=== PATIENT | female | born 1970 | race Caucasian/White ===

== ENCOUNTER 2023-06-29 10:39 | Emergency (ER) | payer MEDICAID, SELFPAY ==
--- NOTE | 2023-06-29 10:41 | XRR_ITS ---
PROCEDURE INFORMATION: Exam: XR Chest Exam date and time: 06/29/2023 11:17 AM Age: 53 years old Clinical indication: Pain; Angina pectoris; Additional info: Chest pain TECHNIQUE: Imaging protocol: Radiologic exam of the chest. Views: 1 view. COMPARISON: No relevant prior studies available. FINDINGS: Lungs: Unremarkable. No consolidation or mass. Pleural spaces: Unremarkable. No pleural effusion. No pneumothorax. Heart/Mediastinum: Unremarkable. No cardiomegaly. Bones/joints: Unremarkable. XR/XR chest 1V portable [id number] IMPRESSION: No acute findings.
--- NOTE | 2023-06-29 10:41 | ECG_ITS ---
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 Measurements Intervals [place] Rate: 61 P: 27 IA: 191 QRS: -10 QRSD: 98 T: 6 QT: 364 QTc: 368 Interpretive Statements SINUS RHYTHM LOW QRS VOLTAGE IN PRECORDIAL LEADS [QRS DEFLECTION < 1.0 mV IN CHEST LEADS] MINIMAL VOLTAGE CRITERIA FOR LVH, CONSIDER NORMAL VARIANT [MEETS CRITERIA IN ONE OF: R(aVL), S(V1), R(V5), R(V5/V6)+S(V1)] No previous ECG available for comparison Electronically Signed On 06-29-2023 23:02:14 CDT by Rnadall Alegre M.D. [id number]
[2023-06-29 10:42] VITALS: BP 158/106; PULSE 62; RESP 18; TEMP 36.3; O2SAT 98; BMI 39.6
[2023-06-29 11:00] LABS: Basophils # 0.1 10^3/uL (0.0-0.1); Basophils % 0.9 %; Eosinophils # 0.2 10^3/uL (0.0-0.8); Eosinophils % 2.9 %; Hematocrit 40.7 % (36-47); Lymphocytes # 1.9 10^3/uL (0.8-4.8); Lymphocytes % 29.8 %; Mean Corpuscular HGB Conc 31.4 g/dL (30-55); Mean Corpuscular Hemoglobin 28.6 pg (27-33); Mean Corpuscular Volume 91.1 fl (85-98); Mean Platelet Volume 10.3 fL (7.4-10.4); Monocytes # 0.5 10^3/uL (0.2-0.9); Monocytes % 8.3 %; Neutrophils # 3.73 10^3/uL (1.8-7.7); Neutrophils % 57.8 %; Nucleated Red Blood Cells % 0 %; Platelet Count 272 10^3/cmm (157-399); Red Blood Count 4.47 10^6/uL (3.85-5.65); Red Cell Distribution Width 13.9 % (12.1-15.1); White Blood Count 6.47 10^3/uL (3.29-11.43)
[2023-06-29 11:26] LABS: Troponin(5th) Baseline < 6 ng/L (0-10)
[2023-06-29 11:35] LABS: Alanine Aminotransferase 48 U/L (0-33); Albumin Level 4.1 g/dL (3.5-5.2); Alkaline Phosphatase 110 U/L (35-105); Anion Gap 13.5 (5-19); Aspartate Amino Transferase 43 U/L (0-32); Blood Urea Nitrogen 15 mg/dL (6-20); Calcium 9.3 mg/dL (8.5-10.5); Carbon Dioxide 28 mmol/L (22-29); Chloride 103 mmol/L (98-107); Creatinine Clr Calc Pharmacy 80.1468; Globulin 3.1 g/dL (1.3-4.6); Glomerular Filtration Rate 65.8 mL/min (90-130); Glucose 88 mg/dL (65-115); Lipase 22 U/L (13-60); NT Pro B Type Natriuretic Pept 148 pg/mL (0-125); Osmolality Calculated 290 mOsm/kg (285-295); Potassium 4.5 mmol/L (3.5-5.1); Sodium 140 mmol/L (136-145); Total Bilirubin 0.3 mg/dL (0.15-1.2); Total Protein 7.2 g/dL (6.6-8.7)
[2023-06-29 12:34] VITALS: BP 215/123; PULSE 63; RESP 18; O2SAT 100
--- NOTE | 2023-06-29 12:40 | W.ED.CHESTPA ---
HPI - Chest Pain General: Chief Complaint: Chest Pain Stated Complaint: Chest pains Time Seen by Provider: 06/29/23 10:58 History of Present Illness: Patient presents today with complaints of high blood pressure. Patient reports that she has has had issues with her blood pressure but has not been able to get her prescription filled due to insurance not okaying prescription refill. Patient has a history of atrial fibs, CARMINA, diverticulitis, seizure disorder, hernia, hysterectomy, allergy to fish, asthma, allergy, high cholesterol. Patient sees Dr. Laughlin. Review of Systems General: Reports: 10 or more systems reviewed and unremarkable except in HPI and below Physical Exam Const: COMMON NORMALS: alert HENMT: COMMON NORMALS: normocephalic HEAD & SCALP: normocephalic Neck/C-Spine: COMMON NORMALS: full ROM Resp: COMMON NORMALS: normal respiratory effort and clear to auscultation bilaterally AUSCULTATION: clear to auscultation bilaterally Cardio: COMMON NORMALS: regular rate and regular rhythm RATE: regular rate RHYTHM: regular rhythm GI: COMMON NORMALS: Soft to palpation and non-tender PALPATION: Yes Soft to palpation Back/Pelvis: COMMON NORMALS: thoracic and lumbar spine normal to inspection Extremity: COMMON NORMALS: normal to inspection Neuro: SENSORIUM/ORIENTATION: Yes alert Skin: COMMON NORMALS: turgor normal GENERAL SKIN EXAM: turgor normal Course Vital Signs: Vital signs: Vital Signs Temperature 97.4 F L 06/29/23 10:42 Pulse Rate 59 L 06/29/23 13:20 Respiratory Rate 18 06/29/23 13:20 Blood Pressure 190/126 06/29/23 13:20 Pulse Oximetry 99 06/29/23 13:20 Oxygen Delivery Me thod Room Air 06/29/23 13:20 MDM - Chest Pain Medical Decision Making Patient comes in today with complaints of high blood pressure. Patient appears nontoxic. Patient appears in no acute distress. Lungs are clear to auscultation. No edema is noted. Patient's vital signs normal except for some elevated blood pressure at 158/106. Differential diagnosis includes ACS, CHF, anxiety. Second troponin was unchanged at 6. CBC CMP otherwise was normal. Chest x-ray was normal. Patient's blood pressure came down to 150 systolic. Patient be continued on metoprolol 25 mg daily. Recommended follow-up with primary care for recheck in 3 days. Lab Data 06/29/23 10:55 06/29/23 10:55 Radiology Impressions Chest X-Ray 06/29/23 10:41 IMPRESSION: No acute findings. Laboratory Results WBC 6.47 10^3/uL (3.29-11.43) 06/29/23 10:55 RBC 4.47 10^6/uL (3.85-5.65) 06/29/23 10:55 Hgb 12.80 g/dL (11.27-16.99) 06/29/23 10:55 Hct 40.7 % (36-47) 06/29/23 10:55 MCV 91.1 fl (85-98) 06/29/23 10:55 MCH 28.6 pg (27-33) 06/29/23 10:55 MCHC 31.4 g/dL (30-55) 06/29/23 10:55 RDW 13.9 % (12.1-15.1) 06/29/23 10:55 Plt Count 272 10^3/cmm (157-399) 06/29/23 10:55 MPV 10.3 fL (7.4-10.4) 06/29/23 10:55 Neut % (Auto) 57.8 % 06/29/23 10:55 Lymph % (Auto) 29.8 % 06/29/23 10:55 [place] % (Auto) 8.3 % 06/29/23 10:55 Eos % (Auto) 2.9 % 06/29/23 10:55 Baso % (Auto) 0.9 % 06/29/23 10:55 Neut # (Auto) 3.73 10^3/uL (1.8-7.7) 06/29/23 10:55 Lymph # (Auto) 1.9 10^3/uL (0.8-4.8) 06/29/23 10:55 [place] # (Auto) 0.5 10^3/uL (0.2-0.9) 06/29/23 10:55 Eos # (Auto) 0.2 10^3/uL (0.0-0.8) 06/29/23 10:55 Baso # (Auto) 0.1 10^3/uL (0.0-0.1) 06/29/23 10:55 Nucleated RBC % (auto) 0 % 06/29/23 10:55 Nucleated RBCs # 0.0 /100WBC 06/29/23 10:55 Sodium 140 mmol/L (136-145) 06/29/23 10:55 Potassium 4.5 mmol/L (3.5-5.1) 06/29/23 10:55 Chloride 103 mmol/L (98-107) 06/29/23 10:55 Carbon Dioxide 28 mmol/L (22-29) 06/29/23 10:55 Anion Gap 13.5 (5-19) 06/29/23 10:55 BUN 15 mg/dL (6-20) 06/29/23 10:55 Creatinine 0.9 mg/dL (0.5-0.9) 06/29/23 10:55 GFR Calculation 65.8 mL/min (90-130) L 06/29/23 10:55 Glucose 88 mg/dL (65-115) 06/29/23 10:55 Calculated Osmolality 290 mOsm/kg (285-295) 06/29/23 10:55 Calcium 9.3 mg/dL (8.5-10.5) 06/29/23 10:55 Total Bilirubin 0.3 mg/dL (0.15-1.2) 06/29/23 10:55 AST 43 U/L (0-32) H 06/29/23 10:55 ALT 48 U/L (0-33) H 06/29/23 10:55 Alkaline Phosphatase 110 U/L (35-105) H 06/29/23 10:55 Troponin T Baseline < 6 ng/L (0-10) 06/29/23 10:55 Troponin T 120 Minute 6.00 ng/L (0-10) 06/29/23 12:50 Delta Troponin T 0.81233 ABS# (0-10) 06/29/23 12:50 NT-Pro-B Natriuret Pep 148 pg/mL (0-125) H 06/29/23 10:55 Total Protein 7.2 g/dL (6.6-8.7) 06/29/23 10:55 Albumin 4.1 g/dL (3.5-5.2) 06/29/23 10:55 Globulin 3.1 g/dL (1.3-4.6) 06/29/23 10:55 Lipase 22 U/L (13-60) 06/29/23 10:55 All radiology interpretation(s) finalized by discharge EKG Data EKG 1: I personally reviewed and interpreted this EKG as follows: EKG interpretation date: 06/29/23 EKG interpretation time: 13:02 Prior EKG tracings: not available for review Interpretation: EKG shows a mildly irregular rhythm with a rate in the 50s suggesting a atrial fibrillation with a slow ventricular response. No ST elevation or other ectopy is noted. No prior exam was available for comparison. Artifact is present Computer generated interpretation: Atrial fibrillation with slow ventricular response, low QRS voltage in precordial leads, inferior myocardial infarction of indeterminate age, abnormal EKG, unconfirmed report. Discharge Plan Discharge Patient Disposition: Home Clinical Impression: Hypertension Qualifiers: Hypertension type: unspecified Qualified Code(s): I10 - Essential (primary) hypertension Condition: Stable Prescriptions: New metoprolol succinate 50 mg tablet extended release 24 hr 25 mg PO DAILY Qty: 15 0RF No Action atorvastatin 40 mg tablet 40 mg PO QPM buspirone 5 mg tablet 5 mg PO BID alprazolam 1 mg tablet 1 mg PO BID potassium chloride 10 mEq Tablet Extended Release 10 meq PO DAILY Aspir-81 81 mg Tablet,Delayed Release (Dr/Ec) 81 mg PO DAILY ondansetron 8 mg tablet,disintegrating 8 mg PO BID warfarin 2 mg tablet 4 mg PO DAILY Rx Instructions: WITH 1MG TABLET TO EQUAL 5MG DAILY warfarin 1 mg Tablet 1 mg PO DAILY Rx Instructions: WITH TWO 2 MG TABLETS TO EQUAL 5 MG DAILY metoprolol tartrate 25 mg tablet 25 mg PO BID Discharge Orders: Discharge ED (Routine); Ordered 06/29/23 Ordered By: Davon Mercedes Discharge Diet: Usual diet Discharge Activity: Increase activity as tolerated Patient Instructions: Hypertension (ED) Activity Restrictions/Additional Instructions: Follow-up with primary care for recheck of blood pressure at next scheduled appointment. Return to ER for worsening symptoms such as increased shortness of breath, chest pain, or new concerns. Coding Level of Care Code ED [employer] Secretary for Karen Arvizu
[2023-06-29] MEDS: metoprolol succinate ER (24 HR) 50 mg Tablet 25 MG PO (12:48)
--- NOTE | 2023-06-29 12:54 | ECG_ITS ---
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 Measurements Intervals [place] Rate: 52 P: 0 VT: 0 QRS: -27 QRSD: 86 T: -25 QT: 393 QTc: 368 Interpretive Statements Regular supraventricular bradycardia, possibly sinus LOW QRS VOLTAGE IN PRECORDIAL LEADS [QRS DEFLECTION < 1.0 mV IN CHEST LEADS] MODERATE VOLTAGE CRITERIA FOR LVH, CONSIDER NORMAL VARIANT [MEETS CRITERIA IN ONE OF: R(aVL), S(V1), R(V5), R(V5/V6)+S(V1)] INFERIOR MYOCARDIAL INFARCTION , OF INDETERMINATE AGE [40+ ms Q WAVE AND/OR ST/T ABNORMALITY IN II/aVF] Compared to ECG 06/29/2023 10:44:35 Myocardial infarct finding now present Heavy baseline artifact, need to repeat Electronically Signed On 06-29-2023 23:13:34 CDT by Randall Alegre M.D. [id number]
[2023-06-29 13:12] LABS: Troponin 5 2HR Delta 0.00001 ABS# (0-10)
[2023-06-29 13:20] VITALS: BP 190/126; PULSE 59; RESP 18; O2SAT 99
== END 2023-06-29 14:46 | disposition home or self-care (01) ==
PROVIDERS: Emergency Provider Nurse Practitioner Family
DX: I10 Essential (primary) hypertension (principal); Z79.82 Long term (current) use of aspirin; Z79.01 Long term (current) use of anticoagulants
CPT/HCPCS: 36415; 71045; 80053; 83690; 83880; 84484; 85025; 93005; 99285

== ENCOUNTER 2023-08-14 15:14 | Outpatient (CLI) | payer MEDICAID, SELFPAY ==
--- NOTE | 2023-08-14 15:16 | CT_ITS ---
WS: [id number] CT ABDOMEN AND PELVIS WITH CONTRAST HISTORY: Abdominal Pain TECHNIQUE: Imaging performed of the abdomen and pelvis with IV contrast. Single phase imaging of the abdomen. Coronal and sagittal reformats are submitted. All CT scans at [facility] use at [address] [facility] one of these dose optimization techniques: automated exposure control; mA and/or kV adjustment per patient size (includes targeted exams where dose is matched to clinical indication); or iterative re construction. IV CONTRAST: Omnipaque 350; 100 mL IV. Oral contrast: Yes. DLP: 789.83 mGy.cm COMPARISON: None available. Lower thorax: Lung bases are clear. Bochdalek hernia on the LEFT. Heart is normal size. Liver/biliary system: Normal size with no intrahepatic dilatation. Gallbladder: Normal. No gallstones or wall thickening. No pericholecystic fluid. Pancreas: Normal size pancreas and pancreatic duct. No adjacent inflammation. Spleen: Normal size spleen. No mass or infarct. Adrenal glands: Normal. Right kidney: Normal size kidney. Simple cyst mid kidney 2.0 x 2.3 cm. No renal obstruction. Left kidney: Tiny cortical hypodensities. No obstruction. Aorta: Normal. Lymphadenopathy: None. Free fluid: None. GI tract: Normal stomach. Normal small bowel with no obstructive pattern. Surgical anastomosis in the mid descending colon. There is mild constipation at this location but no obstruction or mass. A few scattered diverticula. No appendicitis. Abdominal wall: Postsurgical changes along the ventral abdominal wall. There is a focal area of muscu lar thinning with bulging in the LEFT lower quadrant at the site of a prior colostomy that has been r eversed. Pelvis: Prior hysterectomy. No pelvic mass. Normal urinary bladder. Bones: 4 mm anterolisthesis of L4. Facet joint arthritis. CT/CT abdomen pelvis w con* [id number] IMPRESSION: 1. No acute abdominal or pelvic abnormalities are identified. 2. Descending colon anastomotic site appears appropriate. There is no mass or inflammation. No high-grade obstruction. 3. No renal obstruction. 4. RIGHT renal cyst, 2.0 x 2.3 cm. 5. Prior hysterectomy. 6. There are few diverticula in the descending and sigmoid colon but no eviden ce at this time for acute diverticulitis.
[2023-08-14] MEDS: iohexol 350 mg/mL 500 mL Btl (per mL) IV (17:21)
[2023-08-14] MEDS: iohexol 350 mg/mL 500 mL Btl (per mL) PO (17:22)
== END 2023-08-14 15:15 | disposition home or self-care (01) ==
LOC: RAD 15:14
PROVIDERS: PCP Electrodiagnostic Medicine; Visit Provider Electrodiagnostic Medicine
DX: N28.1 Cyst of kidney, acquired (principal); Q79.0 Congenital diaphragmatic hernia; Z90.710 Acquired absence of both cervix and uterus; M43.16 Spondylolisthesis, lumbar region; R10.9 Unspecified abdominal pain
CPT/HCPCS: 74177; Q9967

== ENCOUNTER 2023-08-25 19:41 | Emergency (ER) | payer MEDICARE, MEDICAID, SELFPAY ==
--- NOTE | 2023-08-25 19:43 | XRR_ITS ---
PROCEDURE INFORMATION: Exam: XR Right Ankle Exam date and time: 08/25/2023 8:12 PM Age: 53 years old Clinical indication: Injury or trauma; Fall; Sprain or strain; Ankle; Right TECHNIQUE: Imaging protocol: Radiologic exam of the right ankle. Views: 3 or more views. COMPARISON: No relevant prior studies available. FINDINGS: Bones/joints: A nondisplaced fracture is seen involving the distal right fibula/lateral malleolus, appearing below the level of the tibiotalar joint within the lateral malleolus on the AP and oblique views. No other fracture is seen. Ankle joint appears maintained and intact. Soft tissues: Soft tissue swelling, particularly laterally. XR/XR ankle RT min 3V* [id number] IMPRESSION: Nondisplaced fracture of the lateral malleolus of the right ankle as noted above.
[2023-08-25 19:51] VITALS: BP 129/84; PULSE 62; RESP 16; TEMP 36.6; O2SAT 97
--- NOTE | 2023-08-25 20:20 | ED_ITS ---
HPI - Extremity Problem General: Chief complaint: Extremity Injury, Lower Stated complaint: Injury to right ankle Time Seen by Provider: 08/25/23 20:12 Source: patient Mode of arrival: ambulatory Limitations: no limitations History of Present Illness: Patient is a 53-year-old female who presents to the emergency department for a right foot injury occurring today. Patient states she was walking down some steps outside when her foot slipped off the final step and she subsequently had an inversion injury to the right ankle. No previous surgeries or fractures to the right foot. States that she has had increasing swelling. She has remained ambulatory but states it is becoming more difficult due to the pain. Most pain is noted to be in the lateral aspect and it does radiate proximally. No other symptoms reported at this time. MD Complaint: joint pain Onset (ago): hour(s) Pain Consistency: constant Location: right Radiation: proximal Relieving factors: nothing Exacerbating factors: range of motion and weight bearing Associated symptoms: Deny chest pain, fever(s) or rash Review of Systems General: Reports: 10 or more systems reviewed and unremarkable except in HPI and below Const: Denies: fever(s), chills or fatigue Eyes: Denies: change in vision ENMT: Denies: throat pain, ear or mastoid pain or nasal discharge Card: Denies: chest pain, palpitations, swelling of feet/ankles or lightheadedness Resp: Denies: dyspnea, productive cough or wheezing GI: Denies: abdominal pain, nausea, vomiting, diarrhea or constipation : Denies: flank pain, difficulty voiding, dysuria or urinary frequency Musc: Reports: joint pain; Denies: neck pain or back pain Skin/Breast: Denies: rash Neuro: Denies: headache(s), numbness in extremities or weakness in extremities Physical Exam Const: COMMON NORMALS: no acute distress, patient oriented x3 and no limitations GENERAL APPEARANCE: cooperative, comfortable and well developed ORIENTATION/CONSCIOUSNESS: Yes awake, Yes oriented to person, Yes oriented to place and Yes oriented to time HENMT: COMMON NORMALS: normocephalic, atraumatic and hearing grossly normal bilaterally HEAD & SCALP: normocephalic and atraumatic Eye: COMMON NORMALS: Equal, round and reactive pupils present, EOMs intact bilaterally and conjunctivae normal CONJUNCTIVA: Yes conjunctivae normal PUPIL: Yes Equal, round and reactive pupils present Neck/C-Spine: COMMON NORMALS: full ROM, supple and no JVD Resp: COMMON NORMALS: normal respiratory effort, No retractions, No use of accessory muscles and clear to auscultation bilaterally AUSCULTATION: clear to auscultation bilaterally Cardio: COMMON NORMALS: no JVD, regular rate, regular rhythm, No clicks present (Cardio), No murmurs present (Cardio) and No rub (Cardio) RATE: regular rate RHYTHM: regular rhythm Extremity: NARRATIVE EXTREMITY EXAM: Mild to moderate swelling noted to lateral aspect of patient's right foot. It is tender to palpation about the right lateral malleolus which extends proximally up the leg. She is ambulatory into the emergency department though noted to be with antalgic gait. Distal neurovascular exam is intact. Limited range of motion from the pain, specifically with ankle inversion. Abrasion noted to right knee. Neuro: COMMON NORMALS: patient oriented x3, moves all extremities, no focal motor deficits and no sensory deficits noted SENSORIUM/ORIENTATION: Yes oriented to person, Yes oriented to place and Yes oriented to time Psych: COMMON NORMALS: mental status grossly normal and Normal thought process present THOUGHT PROCESS: Normal thought process present Skin: COMMON NORMALS: no rashes or lesions noted GENERAL SKIN EXAM: no rashes or lesions noted Course Vital Signs: Vital signs: Vital Signs Temperature 97.9 F 08/25/23 19:51 Pulse Rate 62 08/25/23 19:51 Respiratory Rate 16 08/25/23 19:51 Blood Pressure 129/84 08/25/23 19:51 Pulse Oximetry 97 08/25/23 19:51 Oxygen Delivery Me thod Room Air 08/25/23 19:51 MDM - Extremity (Nontraumatic) Medical Decision Making Patient presented for right ankle injury suffered today, inversion injury. She had antalgic gait into the emergency department and exam did reveal some swelling to the lateral aspect with proximal pain. X-ray did demonstrate a nondisplaced fracture of the lateral malleolus, she will be placed in a splint and referred to orthopedics. She has not taken anything for pain at this time and she is instructed to alternate Tylenol and ibuprofen. Crutches will be provided. Strict return precautions given. Lab Data Radiology Impressions Ankle X-Ray 08/25/23 19:43 IMPRESSION: Nondisplaced fracture of the lateral malleolus of the right ankle as noted above. All radiology interpretation(s) finalized by discharge Discharge Plan Discharge Patient Disposition: Home Clinical Impression: Fracture of lateral malleolus of right ankle Qualifiers: Encounter type: initial encounter Fracture type: closed Fracture alignment: nondisplaced Qualified Code(s): S82.64XA - Nondisplaced fracture of lateral malleolus of right fibula, initial encounter for closed fracture Condition: Stable Prescriptions: No Action atorvastatin 40 mg tablet 40 mg PO QPM buspirone 5 mg tablet 5 mg PO BID alprazolam 1 mg tablet 1 mg PO BID potassium chloride 10 mEq Tablet Extended Release 10 meq PO DAILY Aspir-81 81 mg Tablet,Delayed Release (Dr/Ec) 81 mg PO DAILY ondansetron 8 mg tablet,disintegrating 8 mg PO BID warfarin 2 mg tablet 4 mg PO DAILY Rx Instructions: WITH 1MG TABLET TO EQUAL 5MG DAILY warfarin 1 mg Tablet 1 mg PO DAILY Rx Instructions: WITH TWO 2 MG TABLETS TO EQUAL 5 MG DAILY metoprolol tartrate 25 mg tablet 25 mg PO BID metoprolol succinate 50 mg tablet extended release 24 hr 25 mg PO DAILY Qty: 15 0RF Discharge Orders: Discharge ED (Routine); Ordered 08/25/23 Ordered By: Gregg Griffin Referrals: Ricardo Laughlin DO [Primary Care Provider] - Discharge Diet: Usual diet Discharge Activity: Limit activity as instructed Patient Instructions: Ankle Fracture (ED) Activity Restrictions/Additional Instructions: Follow-up with orthopedics as discussed. Splint on until then. Use crutches as provided. Tylenol and ibuprofen at home for pain relief. Return with any new or concerning symptoms. Coding Level of Care Code ED Biostatistics Manager for Karen Arvizu
[2023-08-25] MEDS: ibuprofen 800 mg tablet PO ×2 (21:18→21:31)
--- NOTE | 2023-08-28 14:49 | DCPLANNER ---
messaged ortho for er f/u
== END 2023-08-25 21:31 | disposition home or self-care (01) ==
PROVIDERS: Emergency Provider Physician Assistant; PCP Electrodiagnostic Medicine
DX: S82.64XA Nondisplaced fracture of lateral malleolus of right fibula, initial encounter for closed fracture (principal); Z79.82 Long term (current) use of aspirin; Z79.01 Long term (current) use of anticoagulants; W01.0XXA Fall on same level from slipping, tripping and stumbling without subsequent striking against object, initial encounter
CPT/HCPCS: 29515; 73610; 99283; E0114

== ENCOUNTER 2023-09-04 11:33 | Outpatient (CLI) | payer MEDICARE, MEDICAID, SELFPAY | END 2023-09-04 11:34 | disposition home or self-care (01) | LOC: SPT 11:34 | PROVIDERS: PCP Electrodiagnostic Medicine; Visit Provider Physician Assistant | DX: Z46.89 Encounter for fitting and adjustment of other specified devices (principal); S82.64XD Nondisplaced fracture of lateral malleolus of right fibula, subsequent encounter for closed fracture with routine healing; X58.XXXD Exposure to other specified factors, subsequent encounter | CPT/HCPCS: 97760; L4361 ==

== ENCOUNTER 2023-09-04 14:00 | Outpatient (CLI) | payer MEDICARE, MEDICAID, SELFPAY | END 2023-09-04 14:01 | disposition home or self-care (01) | LOC: SLEEP 09-05 11:42 | PROVIDERS: PCP Electrodiagnostic Medicine; Visit Provider Electrodiagnostic Medicine | DX: R53.83 Other fatigue (principal); S82.831A Other fracture of upper and lower end of right fibula, initial encounter for closed fracture; R06.83 Snoring; W10.9XXA Fall (on) (from) unspecified stairs and steps, initial encounter | CPT/HCPCS: 27786; 73590; 73610; 99203; G0399 ==

== ENCOUNTER → 2023-10-02 11:03 | Outpatient (BNVA) | payer OTHER, MEDICAID, SELFPAY | PROVIDERS: PCP Electrodiagnostic Medicine; Visit Provider Physician Assistant | DX: S82.831A Other fracture of upper and lower end of right fibula, initial encounter for closed fracture (principal); X58.XXXA Exposure to other specified factors, initial encounter | CPT/HCPCS: 73610; 99213 ==

== ENCOUNTER → 2023-10-17 10:54 | Outpatient (BNVA) | payer OTHER, MEDICAID, SELFPAY | PROVIDERS: PCP Electrodiagnostic Medicine; Visit Provider Student in an Organized Health Care Education/Training Program | DX: S82.831A Other fracture of upper and lower end of right fibula, initial encounter for closed fracture (principal); M25.371 Other instability, right ankle; X58.XXXA Exposure to other specified factors, initial encounter; Z46.89 Encounter for fitting and adjustment of other specified devices; S82.831D Other fracture of upper and lower end of right fibula, subsequent encounter for closed fracture with routine healing; X58.XXXD Exposure to other specified factors, subsequent encounter | CPT/HCPCS: 73610; 99213 ==

== ENCOUNTER 2023-10-17 14:08 | Outpatient (CLI) | payer OTHER, MEDICAID, SELFPAY | END 2023-10-17 14:09 | disposition home or self-care (01) | LOC: SPT 14:09 | PROVIDERS: PCP Electrodiagnostic Medicine; Visit Provider Student in an Organized Health Care Education/Training Program | DX: Z46.89 Encounter for fitting and adjustment of other specified devices (principal); S82.831D Other fracture of upper and lower end of right fibula, subsequent encounter for closed fracture with routine healing; X58.XXXD Exposure to other specified factors, subsequent encounter | CPT/HCPCS: 97760; L1902 ==

== ENCOUNTER 2023-11-06 20:00 | Outpatient (CLI) | payer OTHER, MEDICAID, SELFPAY | END 2023-11-06 20:01 | disposition home or self-care (01) | PROVIDERS: PCP Electrodiagnostic Medicine; Visit Provider Electrodiagnostic Medicine | DX: G47.33 Obstructive sleep apnea (adult) (pediatric) (principal) | CPT/HCPCS: 95810 ==

== ENCOUNTER 2023-11-15 12:43 | Outpatient (CLI) | payer OTHER, MEDICAID, SELFPAY ==
--- NOTE | 2023-11-15 13:00 | MRR_ITS ---
PROCEDURE INFORMATION: Exam: MR Right Lower Extremity Joint Without Contrast; Ankle Exam date and time: 11/15/2023 2:06 PM Age: 53 years old Clinical indication: Pain; Ankle; Right; Patient HX: FX 2 mos ago, still sore; Additional info: Right ankle instability and distal fibula fracture TECHNIQUE: Imaging protocol: Magnetic resonance imaging of the right lower extremity without contrast. Exam focused on the ankle. COMPARISON: CR XR ankle RT min 3V* [id number] 10/17/2023 11:08 AM FINDINGS: Bones/joints: Ankle mortise alignment is normal. There is a thin band of bone marrow edema at the distal fibular physis. No bone marrow edema in the tibia or visible portion of the foot. No joint effusion. Articular cartilage is unremarkable. LIGAMENTS: Distal tibiofibular syndesmosis: Posterior distal tibiofibular ligament is intact. Anterior distal tibiofibular ligament is grossly intact but suboptimally visualized. Anterior talofibular ligament: Anterior talofibular ligament is intact. Posterior talofibular ligament: Posterior talofibular ligament is intact. Calcaneofibular ligament: Talocalcaneal ligament is intact. Deltoid ligament complex: Deltoid ligament is intact. TENDONS: Flexor tendons of foot: Unremarkable as visualized. Tibialis posterior tendon: Unremarkable as visualized. Peroneal tendons: Peroneal tendons are unremarkable. Extensor tendons of foot: Visible portions of the digital extensor tendons are normal. Tibialis anterior tendon: Tibialis anterior tendon is normal. Achilles tendon: Achilles tendon is normal. Tarsal canal (Sinus tarsi): Tarsal sinus is normal. Tarsal tunnel: Tarsal tunnel is normal. Soft tissues: Visible soft tissues are unremarkable. Plantar fascia: Visible portions of the plantar fascia are normal. MR/MR ankle RT wo con* [id number] IMPRESSION: 1. Healing nondisplaced fracture of the distal fibula at the level of the physis. Minimal residual bone marrow edema. No displacement. 2. Normal ankle mortise alignment with no sign of significant ligamentous injury.
== END 2023-11-15 12:44 | disposition home or self-care (01) ==
LOC: RAD 12:43
PROVIDERS: PCP Electrodiagnostic Medicine; Visit Provider Student in an Organized Health Care Education/Training Program
DX: S82.831D Other fracture of upper and lower end of right fibula, subsequent encounter for closed fracture with routine healing (principal); M25.371 Other instability, right ankle
CPT/HCPCS: 73721

== ENCOUNTER → 2024-01-16 13:46 | Outpatient (BNVA) | payer OTHER, MEDICAID, SELFPAY | PROVIDERS: PCP Electrodiagnostic Medicine; Visit Provider Student in an Organized Health Care Education/Training Program | DX: S82.831A Other fracture of upper and lower end of right fibula, initial encounter for closed fracture (principal); X58.XXXA Exposure to other specified factors, initial encounter; M25.371 Other instability, right ankle | CPT/HCPCS: 73610; 99213 ==

== ENCOUNTER 2024-01-18 16:43 | Inpatient (IN) | payer MEDICARE, MEDICAID, SELFPAY ==
[2024-01-18] VITALS (8 sets, daily range): BP systolic 109–151; BP diastolic 68–102; PULSE 64–140; RESP 16; TEMP 36.5–36.8; O2SAT 92–97; BMI 39.4; BMI 38.8
--- NOTE | 2024-01-18 16:50 | ED_ITS ---
HPI - GI Bleed 2 General: Chief complaint: GI Bleed Stated complaint: GI BLEED Time Seen by Provider: 01/18/24 16:45 History of Present Illness: 53-year-old female with history of diver ticulosis and history of perforated bowel and bowel resection in the past. She had had a ostomy at 1 point. She then had a hernia at the ostomy site and had that repaired. Today she presents by ambulance with lower GI bleeding and left lower quadrant pain. She is also having some nausea. This all started a few hours ago. No known fevers. No chest pain. No shortness of breath. No altered mental status. Patient is anticoagulated on warfarin secondary to a blood clot she says it was in the vein to her liver. Related Data Home Medications Medication Instructions Recorded Confirmed alprazolam 1 mg tablet 1 mg PO BID 06/29/23 01/16/24 aspirin 81 mg tablet,delayed 81 mg PO DAILY 06/29/23 01/16/24 release atorvastatin 40 mg tablet 40 mg PO QPM 06/29/23 01/16/24 buspirone 5 mg tablet 5 mg PO BID 06/29/23 01/16/24 metoprolol tartrate 25 mg tablet 25 mg PO BID 06/29/23 01/16/24 ondansetron 8 mg disintegrating 8 mg PO BID 06/29/23 01/16/24 tablet potassium chloride 10 mEq 10 meq PO DAILY 06/29/23 01/16/24 tablet,extended release warfarin 1 mg tablet 1 mg PO DAILY 06/29/23 01/16/24 warfarin 2 mg tablet 4 mg PO DAILY 06/29/23 01/16/24 Previous Rx's Medication Instructions Recorded metoprolol succinate 50 mg 25 mg (1/2 x 50 mg) PO DAILY #15 06/29/23 tablet,extended release 24 hr tabs right ortho boot #1 ea 09/04/23 Right Ankle Lace Up Brace #1 ea 10/17/23 hydrocodone 5 mg-acetaminophen 325 1 tab PO Q6H PRN pain 5 days #20 01/16/24 mg tablet tabs Allergies Allergy/AdvReac Type Severity Reaction Status Date / Time azithromycin [From Zithromax] Allergy ALGY-Anaphy Verified 01/16/24 13:49 laxis Penicillins Allergy ALGY-Anaphy Verified 01/16/24 13:49 laxis Review of Systems 2 Narrative: Constitutional symptoms: Negative except as documented in HPI. Skin symptoms: Negative except as documented in HPI. Eye symptoms: Negative except as documented in HPI. ENMT symptoms: Negative except as documented in HPI. Respiratory symptoms: Negative except as documented in HPI. Cardiovascular symptoms: Negative except as documented in HPI. Gastrointestinal symptoms: Negative except as documented in HPI. Genitourinary symptoms: Negative except as documented in HPI. Musculoskeletal symptoms: Negative except as documented in HPI. Neurologic symptoms: Negative except as documented in HPI. Psychiatric symptoms: Negative except as documented in HPI. Endocrine symptoms: Negative except as documented in HPI. PFSH ED 2 PFSH: Medical History Coronary artery disease Hyperlipidemia Diverticulitis Hypertension Portal vein thrombosis Surgical History History of colostomy reversal History of colectomy Family History Sister Bladder cancer Social History Smoking and tobacco/nicotine status: former use of tobacco/nicotine Physical Exam 2 Narrative: EXAM NARRATIVE: General: Alert, no acute distress. Skin: Warm, dry. Head: Normocephalic, atraumatic. Neck: Supple, trachea midline. Eye: Extraocular movements are intact. Ears, nose, mouth and throat: mucosa moist. Cardiovascular: Regular, Normal peripheral perfusion. Respiratory: Lungs are clear to auscultation, respirations are non-labored, breath sounds are equal, Symmetrical chest wall expansion. Gastrointestinal: Soft, left lower quadrant tenderness, Non distended Musculoskeletal: Normal ROM, no deformity. Neurological: Alert and oriented, No focal neurological deficit observed. Psychiatric: Cooperative, appropriate mood & affect. Course 2 Vital Signs: Vital signs: Vital Signs Temperature 98.2 F 01/18/24 16:46 Pulse Rate 70 01/18/24 20:15 Respiratory Rate 16 01/18/24 20:15 Blood Pressure 130/81 01/18/24 19:30 Pulse Oximetry 93 01/18/24 20:15 Oxygen Delivery Me thod Room Air 01/18/24 18:30 MDM - GI Bleed Medical Decision Making Medical decision making: Differential diagnosis including but not limited to and based on the above HPI, review of systems and physical exam: Concern for diverticulosis with bleeding, diverticulitis, colitis, etc. Orders placed to evaluate differential diagnosis based on the above differential, HPI and physical exam Lab Review: Laboratory results were reviewed and interpreted by myself the emergency room physician. Patient has some significant leukocytosis with a white count of 14.6. No anemia. No renal failure. Coags are elevated with an INR of 3. She takes Coumadin. CT of the abdomen pelvis with contrast: Findings suggestive of infectious or inflammatory colitis involving the descending colon. This fits the patient's symptoms. Given her history we discussed that admission is appropriate. I reviewed the patient's medical record. Reexamination: Patient has some improved pain control with pain meds. No altered mental status. No focal motor deficits. No increased work of breathing. Consultation: I spoke with Dr. Sims who is on-call for the hospitalist service who agrees to admission. Assessment and plan: Colitis Rectal bleeding Chronic anticoagulation ?IV Flagyl and Cipro. IV Dilaudid. IV Zofran. -I discussed the patient with the hospitalist on-call who is admitting the patient. - Discussed findings and plan with patient. Answered any questions. - All laboratory values were reviewed and interpreted personally by myself, the ER physician - All imaging was reviewed and interpreted personally by myself, the ER physician. - Evaluation and treatment of this problem were appropriate in the emergency setting Lab Data 01/18/24 16:50 01/18/24 16:50 Radiology Impressions Abdomen/Pelvis CT 01/18/24 17:35 IMPRESSION: 1. Findings suggestive of an infectious or inflammatory colitis involving the descending colon. Laboratory Results WBC 14.59 10^3/uL (3.29-11.43) H 01/18/24 16:50 RBC 4.86 10^6/uL (3.85-5.65) 01/18/24 16:50 Hgb 13.50 g/dL (11.27-16.99) 01/18/24 16:50 Hct 42.0 % (36-47) 01/18/24 16:50 MCV 86.4 fl (85-98) 01/18/24 16:50 MCH 27.8 pg (27-33) 01/18/24 16:50 MCHC 32.1 g/dL (30-55) 01/18/24 16:50 RDW 13.8 % (12.1-15.1) 01/18/24 16:50 Plt Count 241 10^3/cmm (157-399) 01/18/24 16:50 MPV 10.4 fL (7.4-10.4) 01/18/24 16:50 Neut % (Auto) 89.5 % 01/18/24 16:50 Lymph % (Auto) 6.0 % 01/18/24 16:50 [place] % (Auto) 3.7 % 01/18/24 16:50 Eos % (Auto) 0.2 % 01/18/24 16:50 Baso % (Auto) 0.3 % 01/18/24 16:50 Neut # (Auto) 13.06 10^3/uL (1.8-7.7) H 01/18/24 16:50 Lymph # (Auto) 0.9 10^3/uL (0.8-4.8) 01/18/24 16:50 [place] # (Auto) 0.5 10^3/uL (0.2-0.9) 01/18/24 16:50 Eos # (Auto) 0.0 10^3/uL (0.0-0.8) 01/18/24 16:50 Baso # (Auto) 0.1 10^3/uL (0.0-0.1) 01/18/24 16:50 Nucleated RBC % (auto) 0 % 01/18/24 16:50 Nucleated RBCs # 0.0 /100WBC 01/18/24 16:50 PT 33.50 SECONDS (12.1-14.9) H 01/18/24 16:50 INR 3.14 (0.8-1.2) H 01/18/24 16:50 APTT 40.3 SECONDS (23.9-36.7) H 01/18/24 16:50 Sodium 139 mmol/L (136-145) 01/18/24 16:50 Potassium 3.7 mmol/L (3.5-5.1) 01/18/24 16:50 Chloride 103 mmol/L (98-107) 01/18/24 16:50 Carbon Dioxide 22 mmol/L (22-29) 01/18/24 16:50 Anion Gap 17.7 (5-19) 01/18/24 16:50 BUN 14 mg/dL (6-20) 01/18/24 16:50 Creatinine 1.0 mg/dL (0.5-0.9) H 01/18/24 16:50 GFR Calculation 58.2 mL/min (90-130) L 01/18/24 16:50 Glucose 158 mg/dL (65-115) H 01/18/24 16:50 Calculated Osmolality 292 mOsm/kg (285-295) 01/18/24 16:50 Lactic Acid 2.9 mmol/L (0.5-2.2) H 01/18/24 17:16 Calcium 9.8 mg/dL (8.5-10.5) 01/18/24 16:50 Total Bilirubin 0.5 mg/dL (0.15-1.2) 01/18/24 16:50 AST 17 U/L (0-32) 01/18/24 16:50 ALT 12 U/L (0-33) 01/18/24 16:50 Alkaline Phosphatase 104 U/L (35-105) 01/18/24 16:50 Total Protein 7.2 g/dL (6.6-8.7) 01/18/24 16:50 Albumin 4.4 g/dL (3.5-5.2) 01/18/24 16:50 Globulin 2.8 g/dL (1.3-4.6) 01/18/24 16:50 Lipase 19 U/L (13-60) 01/18/24 16:50 All radiology interpretation(s) finalized by discharge Discharge Plan Discharge Patient Disposition: Placed in Observation Admit Provider: Marquez Sims Clinical Impression: Colitis, Rectal bleeding, Chronic anticoagulation Coding Level of Care Code ED Gis Database Administrator for Karen Arvizu
[2024-01-18 16:56] LABS: Basophils # 0.1 10^3/uL (0.0-0.1); Basophils % 0.3 %; Eosinophils % 0.2 %; Lymphocytes # 0.9 10^3/uL (0.8-4.8); Mean Corpuscular HGB Conc 32.1 g/dL (30-55); Mean Corpuscular Hemoglobin 27.8 pg (27-33); Mean Corpuscular Volume 86.4 fl (85-98); Mean Platelet Volume 10.4 fL (7.4-10.4); Monocytes # 0.5 10^3/uL (0.2-0.9); Monocytes % 3.7 %; Neutrophils # 13.06 10^3/uL (1.8-7.7); Neutrophils % 89.5 %; Nucleated Red Blood Cells % 0 %; Platelet Count 241 10^3/cmm (157-399); Red Blood Count 4.86 10^6/uL (3.85-5.65); Red Cell Distribution Width 13.8 % (12.1-15.1); White Blood Count 14.59 10^3/uL (3.29-11.43)
[2024-01-18 17:11] LABS: INR 3.14 (0.8-1.2); Partial Thromboplastin Time 40.3 SECONDS (23.9-36.7)
[2024-01-18 17:15] LABS: Alanine Aminotransferase 12 U/L (0-33); Albumin Level 4.4 g/dL (3.5-5.2); Alkaline Phosphatase 104 U/L (35-105); Anion Gap 17.7 (5-19); Aspartate Amino Transferase 17 U/L (0-32); Blood Urea Nitrogen 14 mg/dL (6-20); Calcium 9.8 mg/dL (8.5-10.5); Carbon Dioxide 22 mmol/L (22-29); Chloride 103 mmol/L (98-107); Creatinine Clr Calc Pharmacy 77.4496; Globulin 2.8 g/dL (1.3-4.6); Glomerular Filtration Rate 58.2 mL/min (90-130); Glucose 158 mg/dL (65-115); Lipase 19 U/L (13-60); Osmolality Calculated 292 mOsm/kg (285-295); Potassium 3.7 mmol/L (3.5-5.1); Sodium 139 mmol/L (136-145); Total Bilirubin 0.5 mg/dL (0.15-1.2); Total Protein 7.2 g/dL (6.6-8.7)
--- NOTE | 2024-01-18 17:35 | CTR_ITS ---
PROCEDURE INFORMATION: Exam: CT Abdomen And Pelvis With Contrast Exam date and time: 01/18/2024 5:46 PM Age: 53 years old Clinical indication: Abdominal pain; Other: Llq pain TECHNIQUE: Imaging protocol: Computed tomography of the abdomen and pelvis with contrast. Radiation optimization: All CT scans at this facility use at least one of these dose optimization techniques: automated exposure control; mA and/or kV adjustment per patient size (includes targeted exams where dose is matched to clinical indication); or iterative reconstruction. Contrast material: OMNI 350; Contrast volume: 100 ml; Contrast route: INTRAVENOUS (IV); COMPARISON: CT abdomen pelvis w con* [id number] 08/14/2023 4:43 PM RADIATION DOSE METRICS: Total DLP (mGy-cm): 945.13 FINDINGS: Lungs: Subsegmental bibasilar atelectasis. The visualized lung bases are otherwise grossly clear. Diaphragm: Small fat containing bilateral Bochdalek's hernias. Liver: Hepatic steatosis. No evidence of focal hepatic lesion. Gallbladder and biliary ducts: Unremarkable. No intra-hepatic or extra-hepatic biliary dilatation. Pancreas: Unremarkable. Spleen: Unremarkable. Adrenal glands: Unremarkable. Kidneys and ureters: There are simple appearing renal cysts for which dedicated imaging follow-up is not required. Otherwise no evidence of renal parenchymal abnormality. No hydronephrosis or ureteral stone. Stomach and bowel: Postsurgical changes of the sigmoid colon. There is wall thickening and pericolonic inflammatory change of the descending colon suggestive of an infectious or inflammatory colitis. Appendix: Normal appendix. Intraperitoneal space: No evidence of free air or fluid collection. Vasculature: No aneurysmal dilatation or dissection of the abdominal aorta. The celiac trunk, SMA and GUZMAN are grossly patent. No evidence of IVC thrombus. The portal vein, SMV and splenic veins are grossly patent. Lymph nodes: No adenopathy. Urinary bladder: Grossly unremarkable. Reproductive: Prior hysterectomy. Bones/joints: No evidence of acute fracture or aggressive osseous lesion. Soft tissues: No evidence of fluid collection or hematoma in the superficial soft tissues. CT/CT abdomen pelvis w con* [id number] IMPRESSION: 1. Findings suggestive of an infectious or inflammatory colitis involving the descending colon.
[2024-01-18 17:45] LABS: Lactic Sepsis W/Reflex 2.9 mmol/L (0.5-2.2)
[2024-01-18] MEDS: iohexol 350 mg/mL 500 mL Btl (per mL) IV (17:49)
[2024-01-18 19:04] LABS: Reflex Lactate Order REFLEX LACTIC ORDERD
--- NOTE | 2024-01-18 19:21 | P.HP_ITS ---
Providers/Chief Complaint 2 Primary Care Provider: Ricardo Laughlin DO Chief Complaint: GI BLEED History of Present Illness Danae Vasquez is a 53 year old female with a past medical history significant for portal vein thrombosis on warfarin, hypertension, coronary artery disease with prior myocardial infarction, and complicated diverticulitis with perforation requiring bowel resection with end ostomy status post reversal who presents to the emergency department with severe abdominal pain x 1 day. Patient describes the location left lower quadrant. She describes the pain is constant. She rates it 10 out of 10. Movement exacerbates. Endorses associated nausea. She also reports blood in her stool in the setting of warfarin. She states she was diagnosed with a portal vein thrombosis in 2016 and she has been on warfarin since that time. Denies any recent VTE. Discussed holding warfarin for now and she is in agreement. Denies any chest pain, fevers or chills. Denies other alleviating or aggravating factors. Patient reports a history of complicated diverticulitis 2 years ago which required bowel resection and end ostomy. She states that her ostomy was eventually reversed. She developed a hernia at the ostomy site which was corrected 1 year ago with mesh. In the emergency department, patient was found to have leukocytosis. CT abdomen pelvis showed findings suggestive of infectious or inflammatory colitis involving the descending colon. Patient started on IV antibiotics. Review of Systems 2 Narrative: A complete review of systems was obtained and is negative except as stated in HPI. Medications/Allergies Home Medications Medication Instructions Recorded Confirmed Last Taken Type alprazolam 1 mg tablet 1 mg PO BID 06/29/23 01/16/24 06/29/23 History aspirin 81 mg tablet,delayed 81 mg PO DAILY 06/29/23 01/16/24 06/29/23 History release atorvastatin 40 mg tablet 40 mg PO QPM 06/29/23 01/16/24 06/28/23 History buspirone 5 mg tablet 5 mg PO BID 06/29/23 01/16/24 06/29/23 History metoprolol succinate 50 mg 25 mg (1/2 x 50 mg) PO DAILY #15 06/29/23 01/16/24 Unknown Rx tablet,extended release 24 hr tabs metoprolol tartrate 25 mg tablet 25 mg PO BID 06/29/23 01/16/24 06/29/23 History ondansetron 8 mg disintegrating 8 mg PO BID 06/29/23 01/16/24 06/29/23 History tablet potassium chloride 10 mEq 10 meq PO DAILY 06/29/23 01/16/24 06/29/23 History tablet,extended release warfarin 1 mg tablet 1 mg PO DAILY 06/29/23 01/16/24 06/29/23 History warfarin 2 mg tablet 4 mg PO DAILY 06/29/23 01/16/24 06/29/23 History right ortho boot #1 ea 09/04/23 01/16/24 Unknown Rx Right Ankle Lace Up Brace #1 ea 10/17/23 01/16/24 Unknown Rx hydrocodone 5 mg-acetaminophen 325 1 tab PO Q6H PRN pain 5 days #20 01/16/24 01/16/24 Unknown Rx mg tablet tabs Allergies Allergy/AdvReac Type Severity Reaction Status Date / Time azithromycin [From Zithromax] Allergy ALGY-Anaphy Verified 01/16/24 13:49 laxis Penicillins Allergy ALGY-Anaphy Verified 01/16/24 13:49 laxis PFSH Acute 2 PFSH: Medical History Coronary artery disease Hyperlipidemia Diverticulitis Hypertension Portal vein thrombosis Surgical History History of colostomy reversal History of colectomy Family History Sister Bladder cancer Social History Smoking and tobacco/nicotine status: former use of tobacco/nicotine Vitals/I&O/Wt Last Vital Signs Temp 98.2 F 01/18/24 16:46 Pulse 140 H 01/18/24 19:13 Resp 16 01/18/24 16:46 BP 132/78 01/18/24 18:30 Pulse Ox 97 01/18/24 18:30 O2 Del Method Room Air 01/18/24 18:30 Weight last 48 hrs Weight 104.326 kg Physical Exam 2 Narrative: General: Patient is awake and alert. Appears to be in moderate pain. Head: Normocephalic. Atraumatic. EOM intact. Neck: No JVD. Cardiovascular: RRR. No gallops. No murmurs. Lungs: Clear to auscultation, no use of accessory muscles, no crackles or wheezes. Skin: No jaundice. No rashes. Abdomen: Left lower quadrant is tender to palpation. Bowel sounds are present. There is well-healed midline surgical incision. Ostomy scar present. No hernia appreciated. Genito Urinary: Genital exam not performed since complaints not related. Rectal: Rectal exam not performed since no symptoms indicated blood loss. Extremities: No cyanosis or clubbing. Musculoskeletal: No swollen or erythematous joints. Neurological: Moves all 4 extremities. No myoclonus. Data 01/18/24 16:50 01/18/24 16:50 A&P Assessment and plan (1) Colitis: Colitis of descending colon Complicated history of diverticulitis requiring ostomy status post reversal Start broad-spectrum antibiotics with ciprofloxacin and Flagyl IV fluid bolus followed by maintenance fluid Clear liquid diet, advance as tolerated IV antiemetics as needed IV analgesics as needed (2) Portal vein thrombosis: Hold warfarin (3) Hypertension: Continue home medications (4) Coronary artery disease: Continue beta-jaylin Continue atorvastatin Continue aspirin (5) Anxiety: Continue home medications Plan DVT prophylaxis: Patient is therapeutic on warfarin. CODE STATUS: Full code Attestations 2 Medical Necessity Statement*: Patient presents with severe abdominal pain, found to have colitis in the setting of prior high risk diverticulitis requiring surgeries for which patient will be admitted to observation and expected hospitalization not to cross 2 midnights for IV fluids, IV antibiotics, IV antiemetics, and supportive care. Coding Level of Care Code Acute Code for [facility] Diagnoses Colitis K52.9 Portal vein thrombosis I81 Hypertension I10 Coronary artery disease I25.10 Anxiety F41.9
[2024-01-18] MEDS: ondansetron 2 mg/ML SDV 2 mL 4 MG IVP (19:26)
[2024-01-18] MEDS: HYDROmorphone 1 mg/mL INJ 1 mL IVP (19:27)
[2024-01-18] MEDS: ciprofloxacin 400 MG/200 ML PREMIX 200 MG IV (19:29)
[2024-01-18] MEDS: metroNIDAZOLE IV 500 MG/100 ML PREMIX 100 MG IV (20:21)
[2024-01-18 20:35] LABS: Lactic Acid level (Lactate) 1.2 mmol/L (0.5-2.2)
[2024-01-18 21:02] LABS: Procalcitonin 0.05 ng/mL (0-0.5)
[2024-01-18] MEDS: sodium chloride 0.9% 1,000 ML 999 ML IV ×2 (21:26→22:45)
[2024-01-18] MEDS: pantoprazole 40 mg SDV IVP (21:30)
[2024-01-18] MEDS: sodium chloride 0.9% 1,000 ML 100 ML IV (21:33)
[2024-01-19] VITALS (10 sets, daily range): BP systolic 104–139; BP diastolic 60–90; PULSE 57–72; RESP 16–20; TEMP 36.3–36.8; O2SAT 95–99
[2024-01-19] MEDS: ondansetron 2 mg/ML SDV 2 mL 4 MG IVP (04:20)
[2024-01-19] MEDS: HYDROmorphone 1 mg/mL INJ 1 mL 0.5 MG IVP ×3 (04:20→20:27)
[2024-01-19] MEDS: metroNIDAZOLE IV 500 MG/100 ML PREMIX 100 MG IV ×3 (04:21→22:31)
[2024-01-19 05:46] LABS: Basophils % 0.2 %; Eosinophils % 0.2 %; Lymphocytes # 1.5 10^3/uL (0.8-4.8); Lymphocytes % 14.9 %; Mean Corpuscular HGB Conc 31.7 g/dL (30-55); Mean Corpuscular Volume 88.5 fl (85-98); Mean Platelet Volume 10.6 fL (7.4-10.4); Monocytes # 0.7 10^3/uL (0.2-0.9); Monocytes % 6.7 %; Neutrophils # 7.75 10^3/uL (1.8-7.7); Neutrophils % 77.7 %; Nucleated Red Blood Cells % 0 %; Platelet Count 209 10^3/cmm (157-399); Red Blood Count 4.07 10^6/uL (3.85-5.65); Red Cell Distribution Width 13.9 % (12.1-15.1); White Blood Count 9.98 10^3/uL (3.29-11.43)
[2024-01-19 06:17] LABS: Alanine Aminotransferase 8 U/L (0-33); Albumin Level 3.6 g/dL (3.5-5.2); Alkaline Phosphatase 87 U/L (35-105); Anion Gap 13.8 (5-19); Aspartate Amino Transferase 18 U/L (0-32); Blood Urea Nitrogen 6 mg/dL (6-20); Calcium 8.2 mg/dL (8.5-10.5); Carbon Dioxide 21 mmol/L (22-29); Chloride 107 mmol/L (98-107); Creatinine Clr Calc Pharmacy 110.8845; Globulin 2.1 g/dL (1.3-4.6); Glomerular Filtration Rate 87.9 mL/min (90-130); Glucose 104 mg/dL (65-115); Osmolality Calculated 284 mOsm/kg (285-295); Phosphorus 2.7 mg/dL (2.5-4.5); Potassium 3.8 mmol/L (3.5-5.1); Sodium 138 mmol/L (136-145); Total Bilirubin 0.5 mg/dL (0.15-1.2); Total Protein 5.7 g/dL (6.6-8.7)
[2024-01-19] MEDS: sodium chloride 0.9% 1,000 ML 100 ML IV ×2 (07:54→17:33)
[2024-01-19] MEDS: ciprofloxacin 400 MG/200 ML PREMIX 200 MG IV ×2 (07:55→20:26)
[2024-01-19] MEDS: pantoprazole 40 mg SDV IVP ×2 (07:55→20:27)
[2024-01-19] MEDS: ondansetron 4 MG Tablet PO (09:55)
--- NOTE | 2024-01-19 15:22 | P.PN_ITS ---
Subjective 2 Subjective: Patient was seen this morning, denies any lightheadedness, no dizziness, no nausea, no vomiting he does report 1 episode of bloody stool this morning, she tells me that her stools yesterday will were bloody with clots in it, that since has resolved, she continues to have scant blood in her stools Vitals/I&O/Wt Last Vital Signs Temp 97.7 F 01/19/24 12:19 Pulse 68 01/19/24 12:19 Resp 18 01/19/24 12:19 BP 139/80 01/19/24 12:19 Pulse Ox 95 01/19/24 12:19 O2 Del Method Room Air 01/19/24 12:19 FiO2 21 01/18/24 22:45 01/19/24 01/19/24 01/19/24 06:59 14:59 22:59 Intake Total 1100 / 2400 2460 / 2460 Balance 1100 / 2400 2460 / 2460 Weight last 48 hrs Weight 104.734 kg Weight 102.739 kg Weight 104.326 kg Physical Exam 2 Const: COMMON NORMALS: no acute distress and patient oriented x3 Resp: COMMON NORMALS: normal respiratory effort, No retractions, No use of accessory muscles and clear to auscultation bilaterally AUSCULTATION: clear to auscultation bilaterally Cardio: COMMON NORMALS: regular rate, regular rhythm, S1 normal heart sound present and S2 normal heart sound present RATE: regular rate RHYTHM: r egular rhythm HEART SOUNDS: S1 normal heart sound present and S2 normal heart sound present GI: COMMON NORMALS: Normal to inspection, nondistended, normoactive bowel sounds present and non-tender Extremity: COMMON NORMALS: no pedal edema Neuro: COMMON NORMALS: patient oriented x3 Psych: COMMON NORMALS: mental status grossly normal Data 01/19/24 04:50 01/19/24 04:50 Micro: Microbiology 01/18/24 20:11 Blood Culture - Preliminary Blood SPECIMEN COLLECTED 01/18/24 20:05 Blood Culture - Preliminary Blood SPECIMEN COLLECTED A&P Assessment and plan (1) Colitis: Colitis of descending colon Complicated history of diverticulitis requiring ostomy status post reversal Start broad-spectrum antibiotics with ciprofloxacin and Flagyl IV fluid bolus followed by maintenance fluid Clear liquid diet, advance as tolerated IV antiemetics as needed IV analgesics as needed (2) Portal vein thrombosis: Hold warfarin (3) Hypertension: Continue home medications (4) Coronary artery disease: Continue beta-jaylin Continue atorvastatin Continue aspirin (5) Anxiety: Continue home medications (6) GI bleed: -Complaints of bloody stools with clots -Currently streaks of blood in her stool, no hemodynamic instability no lightheadedness - Likely related to colitis -Nonetheless continue Protonix -Will continue to monitor hemoglobin closely -Hold Coumadin as above, INR is over 3, if her bloody stools persist or becomes hemodynamically unstable reverse INR -SCDs if hemoglobin less than 7 Plan DVT prophylaxis: Patient is therapeutic on warfarin, anticoagulation currently on hold given bloody stools CODE STATUS: Full code Attestations 2 Medical Necessity Statement*: Patient requires hospitalization for colitis, bloody stools, GI bleed, Diagnoses Colitis K52.9 Portal vein thrombosis I81 Hypertension I10 Coronary artery disease I25.10 Anxiety F41.9 GI bleed K92.2
[2024-01-19 16:01] LABS: Hematocrit 33.5 % (36-47)
--- NOTE | 2024-01-19 21:25 | PC.NURSE ---
patient had a small bowel movement mixed with bright red blood and one large bright red clot. patient had complaints of pain on a scale of 0-10 she rated her pain at a 10. 0.5mg of dilaudid given per iv push.
[2024-01-19 22:39] LABS: Hematocrit 32.9 % (36-47)
[2024-01-20 04:00] VITALS: BP 123/71; PULSE 72; RESP 16; TEMP 36.7; O2SAT 96
[2024-01-20 04:13] LABS: Alanine Aminotransferase 8 U/L (0-33); Albumin Level 3.7 g/dL (3.5-5.2); Alkaline Phosphatase 81 U/L (35-105); Anion Gap 14.6 (5-19); Aspartate Amino Transferase 13 U/L (0-32); Blood Urea Nitrogen 3 mg/dL (6-20); Calcium 8.8 mg/dL (8.5-10.5); Carbon Dioxide 24 mmol/L (22-29); Chloride 107 mmol/L (98-107); Creatinine Clr Calc Pharmacy 97.0239; Globulin 2.5 g/dL (1.3-4.6); Glomerular Filtration Rate 75.3 mL/min (90-130); Glucose 122 mg/dL (65-115); Osmolality Calculated 292 mOsm/kg (285-295); Phosphorus 2.8 mg/dL (2.5-4.5); Potassium 3.6 mmol/L (3.5-5.1); Sodium 142 mmol/L (136-145); Total Bilirubin 0.5 mg/dL (0.15-1.2); Total Protein 6.2 g/dL (6.6-8.7)
[2024-01-20 04:21] LABS: Basophils % 0.3 %; Eosinophils # 0.1 10^3/uL (0.0-0.8); Eosinophils % 1.2 %; Hematocrit 36.8 % (36-47); Lymphocytes # 1.4 10^3/uL (0.8-4.8); Mean Corpuscular HGB Conc 30.7 g/dL (30-55); Mean Corpuscular Hemoglobin 27.4 pg (27-33); Mean Corpuscular Volume 89.3 fl (85-98); Mean Platelet Volume 11.1 fL (7.4-10.4); Monocytes # 0.4 10^3/uL (0.2-0.9); Monocytes % 6.1 %; Neutrophils # 5.27 10^3/uL (1.8-7.7); Neutrophils % 73.1 %; Nucleated Red Blood Cells % 0 %; Platelet Count 167 10^3/cmm (157-399); Red Blood Count 4.12 10^6/uL (3.85-5.65); White Blood Count 7.21 10^3/uL (3.29-11.43)
[2024-01-20] MEDS: promethazine 25 mg Tablet 12.5 MG PO ×2 (04:21→18:48)
[2024-01-20] MEDS: metroNIDAZOLE IV 500 MG/100 ML PREMIX 100 MG IV ×3 (04:22→19:53)
[2024-01-20] MEDS: sodium chloride 0.9% 1,000 ML 100 ML IV ×2 (04:22→16:09)
[2024-01-20] MEDS: ciprofloxacin 400 MG/200 ML PREMIX 200 MG IV ×2 (06:18→18:48)
[2024-01-20 08:00] VITALS: BP 135/86; PULSE 75; RESP 18; TEMP 36.3; O2SAT 100
[2024-01-20] MEDS: pantoprazole 40 mg SDV IVP ×2 (09:59→21:00)
[2024-01-20] MEDS: ondansetron 2 mg/ML SDV 2 mL 4 MG IVP ×2 (10:04→16:09)
[2024-01-20 10:07] LABS: INR 4.06 (0.8-1.2)
[2024-01-20 11:41] VITALS: BP 126/76; PULSE 68; RESP 16; O2SAT 93
[2024-01-20] MEDS: metoclopramide 5 mg/mL SDV 2 mL IVP ×2 (13:04→19:51)
--- NOTE | 2024-01-20 14:59 | P.PN_ITS ---
Subjective 2 Subjective: Patient was seen this morning, she does feel nauseous this morning she had episode of nausea overnight, no bloody black stools Vitals/I&O/Wt Last Vital Signs Temp 97.3 F L 01/20/24 08:00 Pulse 68 01/20/24 11:41 Resp 16 01/20/24 11:41 BP 126/76 01/20/24 11:41 Pulse Ox 93 01/20/24 11:41 O2 Del Method Room Air 01/20/24 11:41 FiO2 21 01/19/24 20:53 01/19/24 01/20/24 01/20/24 22:59 06:59 14:59 Intake Total 1964 1200 / 5625 1009 / 1009 Output Total 250 / 250 Balance 1964 1200 / 5625 759 / 759 Weight last 48 hrs Weight 104.508 kg Weight 104.734 kg Weight 102.739 kg Weight 104.326 kg Physical Exam 2 Const: COMMON NORMALS: no acute distress and patient oriented x3 Resp: COMMON NORMALS: normal respiratory effort, No retractions, No use of accessory muscles and clear to auscultation bilaterally AUSCULTATION: clear to auscultation bilaterally Cardio: COMMON NORMALS: regular rate, regular rhythm, S1 normal heart sound present and S2 normal heart sound present RATE: regular rate RHYTHM: r egular rhythm HEART SOUNDS: S1 normal heart sound present and S2 normal heart sound present GI: COMMON NORMALS: Normal to inspection, nondistended, normoactive bowel sounds present and non-tender Extremity: COMMON NORMALS: no pedal edema Neuro: COMMON NORMALS: patient oriented x3 Psych: COMMON NORMALS: mental status grossly normal Data 01/20/24 02:29 01/20/24 02:29 Micro: Microbiology 01/18/24 20:11 Blood Culture - Preliminary Blood NEGATIVE TO DATE 01/18/24 20:05 Blood Culture - Preliminary Blood NEGATIVE TO DATE A&P Assessment and plan (1) Colitis: Colitis of descending colon Complicated history of diverticulitis requiring ostomy status post reversal Start broad-spectrum antibiotics with ciprofloxacin and Flagyl IV fluid bolus followed by maintenance fluid Clear liquid diet, advance as tolerated IV antiemetics as needed IV analgesics as needed (2) Portal vein thrombosis: Hold warfarin ? INR supratherapeutic at 4, (3) Hypertension: Continue home medications (4) Coronary artery disease: Continue beta-jaylin Continue atorvastatin Continue aspirin (5) Anxiety: Continue home medications (6) GI bleed: -Complaints of bloody stools with clots -Currently streaks of blood in her stool, no hemodynamic instability no lightheadedness - Likely related to colitis -Nonetheless continue Protonix -Will continue to monitor hemoglobin closely -Hold Coumadin as above, INR is over 3, if her bloody stools persist or becomes hemodynamically unstable reverse INR -SCDs if hemoglobin less than 7 Plan DVT prophylaxis: Patient is therapeutic on warfarin, anticoagulation currently on hold given bloody stools CODE STATUS: Full code Attestations 2 Medical Necessity Statement*: Patient requires hospitalization for colitis, Diagnoses Colitis K52.9 Portal vein thrombosis I81 Hypertension I10 Coronary artery disease I25.10 Anxiety F41.9 GI bleed K92.2
[2024-01-20 16:00] VITALS: BP 120/72; PULSE 71; RESP 17; TEMP 36.9; O2SAT 96
[2024-01-20 19:47] VITALS: BP 114/66; PULSE 74; RESP 15; TEMP 36.6; O2SAT 98
[2024-01-21] VITALS: BP 116/69; PULSE 79; RESP 15; TEMP 37.1; O2SAT 93
[2024-01-21] MEDS: sodium chloride 0.9% 1,000 ML 100 ML IV ×2 (02:11→12:36)
[2024-01-21 03:39] LABS: Basophils % 0.2 %; Eosinophils % 0.6 %; Hematocrit 33.2 % (36-47); Lymphocytes # 0.8 10^3/uL (0.8-4.8); Lymphocytes % 16.8 %; Mean Corpuscular HGB Conc 31.9 g/dL (30-55); Mean Corpuscular Hemoglobin 27.8 pg (27-33); Mean Corpuscular Volume 87.1 fl (85-98); Mean Platelet Volume 10.1 fL (7.4-10.4); Monocytes # 0.5 10^3/uL (0.2-0.9); Monocytes % 10.3 %; Neutrophils # 3.56 10^3/uL (1.8-7.7); Neutrophils % 71.9 %; Nucleated Red Blood Cells % 0 %; Platelet Count 162 10^3/cmm (157-399); Red Blood Count 3.81 10^6/uL (3.85-5.65); Red Cell Distribution Width 13.9 % (12.1-15.1); White Blood Count 4.95 10^3/uL (3.29-11.43)
[2024-01-21 03:45] LABS: INR 3.98 (0.8-1.2)
[2024-01-21 03:52] LABS: Alanine Aminotransferase < 5 U/L (0-33); Albumin Level 3.6 g/dL (3.5-5.2); Alkaline Phosphatase 71 U/L (35-105); Aspartate Amino Transferase 13 U/L (0-32); Blood Urea Nitrogen 2 mg/dL (6-20); Calcium 8.6 mg/dL (8.5-10.5); Carbon Dioxide 24 mmol/L (22-29); Chloride 105 mmol/L (98-107); Creatinine Clr Calc Pharmacy 110.7503; Globulin 2.4 g/dL (1.3-4.6); Glomerular Filtration Rate 87.9 mL/min (90-130); Glucose 122 mg/dL (65-115); Magnesium 1.8 mg/dL (1.7-2.3); Osmolality Calculated 287 mOsm/kg (285-295); Phosphorus 2.4 mg/dL (2.5-4.5); Sodium 140 mmol/L (136-145); Total Bilirubin 0.7 mg/dL (0.15-1.2)
[2024-01-21 04:00] VITALS: BP 111/62; PULSE 81; RESP 17; TEMP 36.7; O2SAT 97
[2024-01-21] MEDS: metroNIDAZOLE IV 500 MG/100 ML PREMIX 100 MG IV ×2 (04:13→12:36)
[2024-01-21] MEDS: metoclopramide 5 mg/mL SDV 2 mL IVP (04:13)
[2024-01-21] MEDS: ciprofloxacin 400 MG/200 ML PREMIX 200 MG IV (06:33)
[2024-01-21 07:43] VITALS: BP 105/68; PULSE 68; RESP 17; TEMP 37; O2SAT 98
[2024-01-21] MEDS: potassium chloride ER 20 mEq Tablet 40 MEQ PO (08:53)
[2024-01-21] MEDS: pantoprazole 40 mg SDV IVP (08:53)
[2024-01-21 11:23] VITALS: BP 105/66; PULSE 73; RESP 18; TEMP 36.9; O2SAT 98
--- NOTE | 2024-01-21 12:55 | PM.DCS ---
Discharge Providers Date of Admission: 01/20/24 14:59 Date of Discharge: January 21, 2024 Attending Provider at Admission: Marquez Sims MD Attending Provider at Discharge: Hans Renteria MD Primary Care Provider: Ricardo Laughlin DO Diagnoses at Discharge Discharge Diagnosis (1) Colitis: Status: Acute (2) Portal vein thrombosis: Status: Acute (3) Hypertension: Status: Acute (4) Coronary artery disease: Status: Acute (5) Anxiety: Status: Acute (6) GI bleed: Status: Acute Reason for Visit Reason for Visit: GI BLEED Hospital Course Hospital Course THIS IS A 53 Y/O F WITH PMH OF PORTAL VEIN THROMBUS ON COUMADIN WHO PRESENTS TO [facility] FOR COMPLAINTS OF BLOODY STOOL AND ABDOMINAL PAIN -PATIENT WAS ADMITTED FOR COLITIS , COUMADIN HELD, RECEIVED IVF, BROAD SPECTRUM ANTIBIOTICS AND MONITORED. Overall patient's clinical condition improved, will be discharged on p.o. antibiotics, instructions to continue IV hydration, GI soft diet. Follow-up with general surgery in 2 to 4 weeks for consideration of EGD and colonoscopy. Patient was advised if she were to have any recurrent bloody black stools to go to emergency room -From concerns for lower GI bleed, complaints of bloody stools, she was monitored as inpatient hemoglobin has been stable, no hemodynamic compromise no recurrent bloody black stools. For now hold Coumadin until at least Monday, with instructions as below -For portal vein thrombosis, Coumadin was held, we discussed risk and benefits of holding anticoagulation, shared decision making, she voiced understanding, all Qs answered, agreed to hold for now -On discharge patient does have a right breast bruise/hematoma hold Coumadin with instructions as below -HOLD COUMADIN -INR TODAY 3.98 (MONDAY) -RECHECK INR ON MONDAY, MONDAY, Monday, MONDAY, MONDAY -ON MONDAY -IF INR IS LESS THAN 3 CAN RESUME COUMADIN, BUT ONLY IF YOUR RIGHT BREAST BRUISE HASN'T ENLARGED AND NO MORE BLOODY STOOLS, CONTINUE TO RECHECK INR DAILY AND LET DR. LAUGHLIN KNOW -IF YOUR BREAST BRUISE HAS ENLARGED OR IF YOU HAVE MORE BLOODY STOOLS CONTINUE TO HOLD COUMADIN INDEFINITELY UNTIL YOU SEE PRIMARY CARE -IF INR>3 CONTINUE TO HOLD COUMADIN, RECHECK INR MONDAY AND CALL DR Liz LAUGHLIN OFFICE -PLEASE CALL DR. LAUGHLIN OFFICE FOR APPOINTMENT IN 48 HOURS -IF YOU DEVELOP PERSISTENT BLOODY OR BLACK STOOLS HOLD COUMADIN UNTIL YOU SEE GENERAL SURGERY -FOLLOW UP WITH GENERAL SURGERY IN 2 WEEKS FOR APPOINTMENT Physical Exam Const: COMMON NORMALS: no acute distress and patient oriented x3 Resp: COMMON NORMALS: normal respiratory effort, No retractions, No use of accessory muscles and clear to auscultation bilaterally AUSCULTATION: clear to auscultation bilaterally Cardio: COMMON NORMALS: regular rate, regular rhythm, S1 normal heart sound present and S2 normal heart sound present RATE: regular rate RHYTHM: regular rhythm HEART SOUNDS: S1 normal heart sound present and S2 normal heart sound present GI: COMMON NORMALS: Normal to inspection, nondistended, normoactive bowel sounds present and non-tender Extremity: COMMON NORMALS: no pedal edema Neuro: COMMON NORMALS: patient oriented x3 Psych: COMMON NORMALS: mental status grossly normal Skin: NARRATIVE SKIN EXAM: Right breast, hematoma, measuring 5 x 5 cm Discharge Data Studies Completed and Pending Completed Studies During Hospitalization Category Date Time Status CT abdomen pelvis w con* [id number] Stat Cat Scan 01/18/24 17:35 Completed Pending at discharge Category Date Time Status Blood Culture Stat Lab 01/18/24 20:11 Results Complete Blood Count w/Auto AM LABS Lab 01/22/24 04:00 Ordered Comprehensive Metabolic Panel AM LABS Lab 01/22/24 04:00 Ordered Magnesium AM LABS Lab 01/22/24 04:00 Ordered Phosphorus AM LABS Lab 01/22/24 04:00 Ordered Prothrombin Time INR AM LABS Lab 01/22/24 04:00 Ordered Prothrombin Time INR AM LABS Lab 01/23/24 04:00 Ordered Radiology Impressions Abdomen/Pelvis CT 01/18/24 17:35 IMPRESSION: 1. Findings suggestive of an infectious or inflammatory colitis involving the descending colon. Laboratory Results WBC 4.95 10^3/uL (3.29-11.43) 01/21/24 03:21 RBC 3.81 10^6/uL (3.85-5.65) L 01/21/24 03:21 Hgb 10.60 g/dL (11.27-16.99) L 01/21/24 03:21 Hct 33.2 % (36-47) L 01/21/24 03:21 MCV 87.1 fl (85-98) 01/21/24 03:21 MCH 27.8 pg (27-33) 01/21/24 03:21 MCHC 31.9 g/dL (30-55) 01/21/24 03:21 RDW 13.9 % (12.1-15.1) 01/21/24 03:21 Plt Count 162 10^3/cmm (157-399) 01/21/24 03:21 MPV 10.1 fL (7.4-10.4) 01/21/24 03:21 Neut % (Auto) 71.9 % 01/21/24 03:21 Lymph % (Auto) 16.8 % 01/21/24 03:21 [place] % (Auto) 10.3 % 01/21/24 03:21 Eos % (Auto) 0.6 % 01/21/24 03:21 Baso % (Auto) 0.2 % 01/21/24 03:21 Neut # (Auto) 3.56 10^3/uL (1.8-7.7) 01/21/24 03:21 Lymph # (Auto) 0.8 10^3/uL (0.8-4.8) 01/21/24 03:21 [place] # (Auto) 0.5 10^3/uL (0.2-0.9) 01/21/24 03:21 Eos # (Auto) 0.0 10^3/uL (0.0-0.8) 01/21/24 03:21 Baso # (Auto) 0.0 10^3/uL (0.0-0.1) 01/21/24 03:21 Nucleated RBC % (auto) 0 % 01/21/24 03:21 Nucleated RBCs # 0.0 /100WBC 01/21/24 03:21 PT 40.40 SECONDS (12.1-14.9) H 01/21/24 03:21 INR 3.98 (0.8-1.2) H 01/21/24 03:21 APTT 40.3 SECONDS (23.9-36.7) H 01/18/24 16:50 Sodium 140 mmol/L (136-145) 01/21/24 03:21 Potassium 3.0 mmol/L (3.5-5.1) L 01/21/24 03:21 Chloride 105 mmol/L (98-107) 01/21/24 03:21 Carbon Dioxide 24 mmol/L (22-29) 01/21/24 03:21 Anion Gap 14.0 (5-19) 01/21/24 03:21 BUN 2 mg/dL (6-20) L 01/21/24 03:21 Creatinine 0.7 mg/dL (0.5-0.9) 01/21/24 03:21 GFR Calculation 87.9 mL/min (90-130) L 01/21/24 03:21 Glucose 122 mg/dL (65-115) H 01/21/24 03:21 Calculated Osmolality 287 mOsm/kg (285-295) 01/21/24 03:21 Lactic Acid 2.9 mmol/L (0.5-2.2) H 01/18/24 17:16 Lactic Acid (Sepsis) 1.2 mmol/L (0.5-2.2) 01/18/24 20:05 Calcium 8.6 mg/dL (8.5-10.5) 01/21/24 03:21 Phosphorus 2.4 mg/dL (2.5-4.5) L 01/21/24 03:21 Magnesium 1.8 mg/dL (1.7-2.3) 01/21/24 03:21 Total Bilirubin 0.7 mg/dL (0.15-1.2) 01/21/24 03:21 AST 13 U/L (0-32) 01/21/24 03:21 ALT < 5 U/L (0-33) 01/21/24 03:21 Alkaline Phosphatase 71 U/L (35-105) 01/21/24 03:21 C-Reactive Protein 3.0 mg/L (0.0-4.9) 01/18/24 16:50 Total Protein 6.0 g/dL (6.6-8.7) L 01/21/24 03:21 Albumin 3.6 g/dL (3.5-5.2) 01/21/24 03:21 Globulin 2.4 g/dL (1.3-4.6) 01/21/24 03:21 Lipase 19 U/L (13-60) 01/18/24 16:50 Procalcitonin 0.05 ng/mL (0-0.5) 01/18/24 16:50 Vitals Last Vital Signs Temp 98.4 F 01/21/24 11:23 Pulse 73 01/21/24 11:23 Resp 18 01/21/24 11:23 BP 105/66 01/21/24 11:23 Pulse Ox 98 01/21/24 11:23 O2 Del Method Room Air 01/21/24 11:23 FiO2 21 01/19/24 20:53 Discharge Plan Discharge Patient Disposition: Home Condition: Stable Prescriptions: New ciprofloxacin HCl 500 mg tablet 500 mg PO Q12H 5 Days Qty: 10 0RF metronidazole 500 mg tablet 500 mg PO Q8H 5 Days Qty: 15 0RF Continued (DME) Right Ankle Lace Up Brace See Rx Instructions .Route .MEDSUPPLY Qty: 1 0RF Rx Instructions: As directed (DME) right ortho boot See Rx Instructions .Route .MEDSUPPLY Qty: 1 0RF Rx Instructions: As directed hydrocodone-acetaminophen 5-325 mg tablet 1 tab PO Q6H PRN (Reason: pain) 5 Days Qty: 20 0RF atorvastatin 40 mg tablet 40 mg PO QPM buspirone 5 mg tablet 5 mg PO BID alprazolam 1 mg tablet 1 mg PO BID potassium chloride 10 mEq Tablet Extended Release 10 meq PO DAILY aspirin 81 mg Tablet,Delayed Release (Dr/Ec) 81 mg PO DAILY ondansetron 8 mg tablet,disintegrating 8 mg PO BID metoprolol tartrate 25 mg tablet 25 mg PO BID Held warfarin 2 mg tablet 4 mg PO DAILY Hold Instructions: Resume on 01/23/24. RECHECK INR Rx Instructions: WITH 1MG TABLET TO EQUAL 5MG DAILY warfarin 1 mg Tablet 1 mg PO DAILY Hold Instructions: Resume on 01/23/24. RECHECK INR Rx Instructions: WITH TWO 2 MG TABLETS TO EQUAL 5 MG DAILY Discharge Orders: Discharge Order (Routine); Ordered 01/21/24 Ordered By: Hans Renteria Referrals: Shaggy Feliz MD [Physician] - 2 weeks (egd and colonoscopy ) Ricardo Laughlin DO [Primary Care Provider] - 1-3 days (You will need to call your primary care provider and make a follow up appointment tomorrow for about a week from today.) Discharge Diet: GI Soft Discharge Activity: Resume usual activity Patient Instructions: Ciprofloxacin (By mouth), Metronidazole (By mouth), Gastrointestinal Bleeding (DC), Microscopic Colitis (DC), Opioid Safety Activity Restrictions/Additional Instructions: -HOLD COUMADIN -INR TODAY 3.98 (MONDAY) -RECHECK INR ON MONDAY, MONDAY, Monday, MONDAY, MONDAY -ON MONDAY -IF INR IS LESS THAN 3 CAN RESUME COUMADIN, BUT ONLY IF YOUR RIGHT BREAST BRUISE HASN'T ENLARGED AND NO MORE BLOODY STOOLS, CONTINUE TO RECHECK INR DAILY AND LET DR. LAUGHLIN KNOW -IF YOUR BREAST BRUISE HAS ENLARGED OR IF YOU HAVE MORE BLOODY STOOLS CONTINUE TO HOLD COUMADIN INDEFINITELY UNTIL YOU SEE PRIMARY CARE -IF INR>3 CONTINUE TO HOLD COUMADIN, RECHECK INR MONDAY AND CALL DR Liz LAUGHLIN OFFICE -PLEASE CALL DR. LAUGHLIN OFFICE FOR APPOINTMENT IN 48 HOURS -IF YOU DEVELOP PERSISTENT BLOODY OR BLACK STOOLS HOLD COUMADIN UNTIL YOU SEE GENERAL SURGERY -FOLLOW UP WITH GENERAL SURGERY IN 2 WEEKS FOR APPOINTMENT Discharge Attestations Time Spent in Discharge Care*: greater than 30 min Quality Metrics Clinical Quality Measures [ No reported AMI, CVA or VTE this stay] Coding Level of Care Code 85482 Total time (in minutes) for Discharge: 45 Diagnoses Colitis K52.9 Portal vein thrombosis I81 Hypertension I10 Coronary artery disease I25.10 Anxiety F41.9 GI bleed K92.2
[2024-01-21 14:09] VITALS: BP 105/66; PULSE 73; O2SAT 98
--- NOTE | 2024-01-21 14:17 | PC.NURSE ---
Discharge paperwork discussed with patient. All questions were answered. IV was removed and wrapped and patient educated to leave bandage on for about 45 minutes to one hour due to risk of bleeding. All belongings with patient. Patient exited facility via wheelchair, escorted by [employer].
== END 2024-01-21 14:15 | disposition home or self-care (01) | DRG 392 ==
LOC: ER 19:44 → MEDSURG 20:09
PROVIDERS: Admitting Provider Internal Medicine; Emergency Provider Emergency Medicine; PCP Electrodiagnostic Medicine; Visit Provider Family Medicine
DX: K52.9 Noninfective gastroenteritis and colitis, unspecified (principal); I10 Essential (primary) hypertension; I25.10 Atherosclerotic heart disease of native coronary artery without angina pectoris; E78.5 Hyperlipidemia, unspecified; S20.01XA Contusion of right breast, initial encounter; F41.9 Anxiety disorder, unspecified; I25.2 Old myocardial infarction; X58.XXXA Exposure to other specified factors, initial encounter; Z86.718 Personal history of other venous thrombosis and embolism; Z90.49 Acquired absence of other specified parts of digestive tract; Z79.82 Long term (current) use of aspirin; Z79.891 Long term (current) use of opiate analgesic; Z88.0 Allergy status to penicillin; Z80.52 Family history of malignant neoplasm of bladder; Z87.891 Personal history of nicotine dependence
CPT/HCPCS: 36415; 74177; 80053; 83605; 83690; 83735; 84100; 84145; 85014; 85018; 85025; 85610; 85730; 86140; 87040; 94660; 96365; 96367; 96375; 99285; G0378; J0744; J1171; J2405; J2470; J2765; J3490; J7030; Q0162; Q0169

== ENCOUNTER → 2024-02-05 08:52 | Outpatient (BNVA) | payer MEDICARE, MEDICAID, SELFPAY | PROVIDERS: PCP Electrodiagnostic Medicine; Visit Provider Podiatrist Foot & Ankle Surgery | DX: M76.71 Peroneal tendinitis, right leg; M25.371 Other instability, right ankle | CPT/HCPCS: 99203 ==

== ENCOUNTER → 2024-03-18 10:46 | Outpatient (BNVA) | payer MEDICARE, MEDICAID, SELFPAY | PROVIDERS: PCP Electrodiagnostic Medicine; Visit Provider Podiatrist Foot & Ankle Surgery | DX: M79.672 Pain in left foot (principal); M76.71 Peroneal tendinitis, right leg; M25.371 Other instability, right ankle; S92.425A Nondisplaced fracture of distal phalanx of left great toe, initial encounter for closed fracture; X50.9XXA Other and unspecified overexertion or strenuous movements or postures, initial encounter | CPT/HCPCS: 73630; 99214 ==

== ENCOUNTER → 2024-05-20 09:42 | Outpatient (BNVA) | payer MEDICARE, MEDICAID, SELFPAY | PROVIDERS: PCP Electrodiagnostic Medicine; Visit Provider Podiatrist Foot & Ankle Surgery | DX: M76.71 Peroneal tendinitis, right leg (principal); M25.371 Other instability, right ankle; S92.425D Nondisplaced fracture of distal phalanx of left great toe, subsequent encounter for fracture with routine healing; X58.XXXD Exposure to other specified factors, subsequent encounter | CPT/HCPCS: 99213 ==

== ENCOUNTER 2024-05-28 08:54 | Outpatient (CLI) | payer OTHER, MEDICAID, SELFPAY ==
--- NOTE | 2024-05-28 10:39 | CT_ITS ---
WS: [id number] LDCT LUNG CANCER SCREENING HISTORY: NICOTINE TECHNIQUE: Axial imaging performed from the apices to 1 cm below the costophrenic angles. Coronal and sagittal reformats are submitted with axial MIP series. All CT scans at [facility] use at least one of these dose optimization techniques: automated exposure control; mA and/or kV adjustment per patient size (includes targeted exams where dose is matched to clinical indication); or iterative reconstruction. DLP: 107.10 mGy DIvol: 3.3 COMPARISON: None available. Diagnostic quality: Satisfactory Lungs: Lungs are clear. No pulmonary mass or nodule. No endobronchial lesions. Lingular subsegmental atelectasis. Heart: Normal size heart with no pericardial effusion.. Other findings: Minimal atherosclerosis aorta. Normal size aorta and pulmonary artery. No adenopathy. No adrenal mass. Upper abdomen is negative. CT/CT lung screening [id number] IMPRESSION: LUNG-RADS: 1-Negative FOLLOW UP: 12 Month: Continue annual screening with LDCT OTHER FINDINGS (S MODIFIER): None.
== END 2024-05-28 08:55 | disposition home or self-care (01) ==
LOC: RAD 08:55
PROVIDERS: PCP Electrodiagnostic Medicine; Visit Provider Electrodiagnostic Medicine
DX: Z12.2 Encounter for screening for malignant neoplasm of respiratory organs (principal); F17.210 Nicotine dependence, cigarettes, uncomplicated; J98.11 Atelectasis
CPT/HCPCS: 71250; 71271

== ENCOUNTER 2024-06-25 16:37 | Emergency (ER) | payer OTHER, MEDICAID, SELFPAY ==
[2024-06-25 16:39] VITALS: BP 155/88; PULSE 58; RESP 16; TEMP 36.6; O2SAT 94
--- NOTE | 2024-06-25 16:40 | ECG_ITS ---
[facility] [employer] Test Date: 2024-06-25 Pat Name: Danae Vasquez Department: Room: Gender: Female Market Sales Manager: : 1970 Requested By: Nathan Roman Order Number: [id number] Reading MD: Measurements Intervals [place] Rate: 50 P: 0 VA: 0 QRS: -9 QRSD: 120 T: 4 QT: 412 QTc: 379 Interpretive Statements ATRIAL FIBRILLATION WITH SLOW VENTRICULAR RESPONSE MODERATE INTRAVENTRICULAR CONDUCTION DELAY [110+ ms QRS DURATION] MODERATE T-WAVE ABNORMALITY, CONSIDER ANTERIOR ISCHEMIA [-0.1+ mV T-WAVE IN V3/V4] [email or web address]
[2024-06-25 17:09] LABS: Basophils % 0.4 %; Eosinophils # 0.1 10^3/uL (0.0-0.8); Eosinophils % 0.8 %; Hematocrit 39.3 % (36-47); Lymphocytes # 1.6 10^3/uL (0.8-4.8); Lymphocytes % 20.8 %; Mean Corpuscular HGB Conc 32.3 g/dL (30-55); Mean Corpuscular Hemoglobin 28.3 pg (27-33); Mean Corpuscular Volume 87.7 fl (85-98); Mean Platelet Volume 10.4 fL (7.4-10.4); Monocytes # 0.6 10^3/uL (0.2-0.9); Monocytes % 7.4 %; Neutrophils # 5.33 10^3/uL (1.8-7.7); Neutrophils % 70.3 %; Nucleated Red Blood Cells % 0 %; Platelet Count 238 10^3/cmm (157-399); Red Blood Count 4.48 10^6/uL (3.85-5.65); Red Cell Distribution Width 14.7 % (12.1-15.1); White Blood Count 7.58 10^3/uL (3.29-11.43)
--- NOTE | 2024-06-25 17:09 | CTR_ITS ---
PROCEDURE INFORMATION: Exam: CT Abdomen And Pelvis With Contrast Exam date and time: 06/25/2024 5:42 PM Age: 54 years old Clinical indication: Abdominal pain; Generalized; Prior surgery; Surgery date: 6+ months; Surgery type: Hernia; Additional info: Abd pain TECHNIQUE: Imaging protocol: Computed tomography of the abdomen and pelvis with contrast. Radiation optimization: All CT scans at this facility use at least one of these dose optimization techniques: automated exposure control; mA and/or kV adjustment per patient size (includes targeted exams where dose is matched to clinical indication); or iterative reconstruction. Contrast material: OMNIPAQUE 350; Contrast volume: 100 ml; Contrast route: INTRAVENOUS (IV); COMPARISON: CT abdomen pelvis w con* [id number] 01/18/2024 5:46 PM RADIATION DOSE METRICS: Total DLP (mGy-cm): 938.27 FINDINGS: Lungs: Unremarkable. Liver: Hepatic steatosis. Subcentimeter hypodensity within the liver, incompletely characterized but likely represents simple hepatic cysts. Gallbladder and biliary ducts: Normal. No calcified stones. No ductal dilation. Pancreas: Normal. No ductal dilation. Spleen: Normal. No splenomegaly. Adrenal glands: Normal. No mass. Kidneys and ureters: 2.3 cm simple appearing right renal cysts. Additional subcentimeter bilateral renal hypodensities. These are not completely characterized but are likely benign cysts. In the absence of risk factors, no further workup is recommended. No hydronephrosis or obstructing calculi bilaterally. Stomach and bowel: Postsurgical changes within sigmoid colon. No focal bowel dilatation. Appendix: Appendix is unremarkable. Intraperitoneal space: Unremarkable. No free air. No significant fluid collection. Vasculature: Unremarkable. No abdominal aortic aneurysm. Lymph nodes: Unremarkable. No enlarged lymph nodes. Urinary bladder: Urinary bladder is partially distended. Reproductive: Hysterectomy. Bones/joints: Unremarkable. No acute fracture. Soft tissues: Unremarkable. CT/CT abdomen pelvis w con* [id number] IMPRESSION: No acute abdominopelvic findings. COMMENTS: Consistent with the [employer]'s Incidental Findings Committee white paper (J Am Raymon Radiol 2018): Any incidental renal lesion less than 1 cm or classified as too small to characterize, or any incidental cystic renal lesion characterized as simple-appearing, is likely benign. No follow-up imaging is recommended for these lesions per consensus recommendations based on imaging criteria.
--- NOTE | 2024-06-25 17:11 | W.ED.ABDPA2 ---
HPI - Abdominal Pain General: Chief Complaint: Abdominal Pain Stated Complaint: Abd pain Time Seen by Provider: 06/25/24 16:39 History of Present Illness: 54-year-old female presents to the emergency room with right lower quadrant abdominal pain. She states she has a history of diverticulitis. She has been nauseated but not had any vomiting she has not had any diarrhea her bowel movements have been normal. She denies any hematochezia or melena. She is on Coumadin she did not have any difficulty with it recently. She does get monitored regularly as an outpatient. She denies any dysuria urgency or frequency no rash or skin pain on the right flank. No history of kidney stones. No fever sweats or chills no cough or shortness of breath. Patient previously has had severe diverticulitis including perforation that ultimately required sigmoid colon resection with colostomy that was later reversed. Associated Symptoms: Reports nausea; Denies chills, coffee ground emesis, dysuria, fever(s), hematochezia, hematemesis, melena and vomiting Related Data Home Medications ?Medication ?Instructions ?Recorded ?Confirmed alprazolam 1 mg tablet 1 mg PO BID 06/29/23 05/20/24 aspirin 81 mg tablet,delayed 81 mg PO DAILY 06/29/23 05/20/24 release atorvastatin 40 mg tablet 40 mg PO QPM 06/29/23 05/20/24 buspirone 5 mg tablet 5 mg PO BID 06/29/23 05/20/24 metoprolol tartrate 25 mg tablet 25 mg PO BID 06/29/23 05/20/24 ondansetron 8 mg disintegrating 8 mg PO BID 06/29/23 05/20/24 tablet potassium chloride 10 mEq 10 meq PO DAILY 06/29/23 05/20/24 tablet,extended release warfarin 1 mg tablet 1 mg PO DAILY 06/29/23 05/20/24 Held on 01/21/24. Instructions: Resume on 01/23/24. RECHECK INR warfarin 2 mg tablet 4 mg PO DAILY 06/29/23 05/20/24 Held on 01/21/24. Instructions: Resume on 01/23/24. RECHECK INR Previous Rx's ?Medication ?Instructions ?Recorded right ortho boot #1 ea 09/04/23 Right Ankle Lace Up Brace #1 ea 10/17/23 Custom made right AFO brace #1 ea 02/05/24 hydrocodone 5 mg-acetaminophen 325 1 tab PO Q8H pain 7 days #21 tabs 03/18/24 mg tablet promethazine 25 mg tablet 25 mg PO Q6H PRN nausea and 06/25/24 vomiting #20 tabs Allergies Allergy/AdvReac Type Severity Reaction Status Date / Time azithromycin (From Zithromax) Allergy ALGY-Anaphy Verified 05/20/24 10:38 laxis Penicillins Allergy ALGY-Anaphy Verified 05/20/24 10:38 laxis Review of Systems Const: Denies: fever(s) or chills Card: Denies: chest pain Resp: Denies: dyspnea GI: Reports: abdominal pain and nausea; Denies: vomiting, hematemesis, coffee ground emesis, hematochezia or melena : Denies: dysuria, urinary frequency or urinary urgency Musc: Denies: neck pain or back pain Skin/Breast: Denies: rash PFSH ED PFSH: Medical History Coronary artery disease Hyperlipidemia Diverticulitis Hypertension Portal vein thrombosis Surgical History History of colostomy reversal History of colectomy Family History Sister Bladder cancer Social History Smoking and tobacco/nicotine status: former use of tobacco/nicotine Physical Exam Const: GENERAL APPEARANCE: cooperative ORIENTATION/CONSCIOUSNESS: Yes awake, Yes oriented to person, Yes oriented to place and Yes oriented to time HENMT: COMMON NORMALS: normocephalic, atraumatic and hearing grossly normal bilaterally HEAD & SCALP: normocephalic and atraumatic Resp: COMMON NORMALS: normal respiratory effort, No retractions, No use of accessory muscles and clear to auscultation bilaterally AUSCULTATION: clear to auscultation bilaterally Cardio: COMMON NORMALS: regular rate, regular rhythm and No murmurs present (Cardio) RATE: regular rate RHYTHM: regular rhythm GI: COMMON NORMALS: No hepatosplenomegaly present AUSCULTATION: Yes normoactive bowel sounds PALPATION: Yes Tenderness to palpation present (GI) Details: RLQ, No Guarding due to palpation present (GI) and Yes No hepatosplenomegaly present Extremity: COMMON NORMALS: normal to inspection, capillary refill normal, no clubbing, cyanosis or edema, no calf tenderness and no pedal edema Neuro: SENSORIUM/ORIENTATION: Yes oriented to person, Yes oriented to place and Yes oriented to time Skin: COMMON NORMALS: no rashes or lesions noted GENERAL SKIN EXAM: no rashes or lesions noted Course Vital Signs: Vital signs: Vital Signs Temperature 97.8 F 06/25/24 16:39 Pulse Rate 53 L 06/25/24 19:27 Respiratory Rate 16 06/25/24 19:27 Blood Pressure 127/77 06/25/24 19:27 Pulse Oximetry 98 06/25/24 19:27 MDM - Abdominal Pain Medical Decision Making CT did not show any acute pathology white count normal. Normal liver functions and T. bili. Urine did not show signs of hematuria or cystitis. On repeat exam patient does not have an acute abdomen. She does not have any pain radiating into her leg at this time. Also examining her flank there was no evidence of rash no zoster. Discharge patient home her biggest concern was that she was having another episode of diverticulitis. Clear liquid diet Ruiz for promethazine to use as needed for nausea vomiting follow-up with your primary care doctor return to emergency room if symptoms worsen. Medical Records I reviewed the patient's medical records. Lab Data I reviewed the patient's lab results. 06/25/24 17:02 06/25/24 17:02 Labs/Radiology: Radiology Impressions Abdomen/Pelvis CT 06/25/24 17:09 IMPRESSION: No acute abdominopelvic findings. COMMENTS: Consistent with the [employer]'s Incidental Findings Committee white paper (J Am Raymon Radiol 2018): Any incidental renal lesion less than 1 cm or classified as too small to characterize, or any incidental cystic renal lesion characterized as simple-appearing, is likely benign. No follow-up imaging is recommended for these lesions per consensus recommendations based on imaging criteria. Laboratory Results WBC 7.58 10^3/uL (3.29-11.43) 06/25/24 17:02 RBC 4.48 10^6/uL (3.85-5.65) 06/25/24 17:02 Hgb 12.70 g/dL (11.27-16.99) 06/25/24 17:02 Hct 39.3 % (36-47) 06/25/24 17:02 MCV 87.7 fl (85-98) 06/25/24 17:02 MCH 28.3 pg (27-33) 06/25/24 17:02 MCHC 32.3 g/dL (30-55) 06/25/24 17:02 RDW 14.7 % (12.1-15.1) 06/25/24 17:02 Plt Count 238 10^3/cmm (157-399) 06/25/24 17:02 MPV 10.4 fL (7.4-10.4) 06/25/24 17:02 Neut % (Auto) 70.3 % 06/25/24 17:02 Lymph % (Auto) 20.8 % 06/25/24 17:02 Izard % (Auto) 7.4 % 06/25/24 17:02 Eos % (Auto) 0.8 % 06/25/24 17:02 Baso % (Auto) 0.4 % 06/25/24 17:02 Neut # (Auto) 5.33 10^3/uL (1.8-7.7) 06/25/24 17:02 Lymph # (Auto) 1.6 10^3/uL (0.8-4.8) 06/25/24 17:02 Izard # (Auto) 0.6 10^3/uL (0.2-0.9) 06/25/24 17:02 Eos # (Auto) 0.1 10^3/uL (0.0-0.8) 06/25/24 17:02 Baso # (Auto) 0.0 10^3/uL (0.0-0.1) 06/25/24 17:02 Nucleated RBC % (auto) 0 % 06/25/24 17:02 Nucleated RBCs # 0.0 /100WBC 06/25/24 17:02 Sodium 137 mmol/L (136-145) 06/25/24 17:02 Potassium 3.6 mmol/L (3.5-5.1) 06/25/24 17:02 Chloride 103 mmol/L (98-107) 06/25/24 17:02 Carbon Dioxide 23 mmol/L (22-29) 06/25/24 17:02 Anion Gap 14.6 (5-19) 06/25/24 17:02 BUN 10 mg/dL (6-20) 06/25/24 17:02 Creatinine 0.9 mg/dL (0.5-0.9) 06/25/24 17:02 GFR Calculation 65.5 mL/min (90-130) L 06/25/24 17:02 Glucose 99 mg/dL (65-115) 06/25/24 17:02 Calculated Osmolality 283 mOsm/kg (285-295) L 06/25/24 17:02 Calcium 9.5 mg/dL (8.5-10.5) 06/25/24 17:02 Total Bilirubin 0.7 mg/dL (0.15-1.2) 06/25/24 17:02 AST 18 U/L (0-32) 06/25/24 17:02 ALT 13 U/L (0-33) 06/25/24 17:02 Alkaline Phosphatase 91 U/L (35-105) 06/25/24 17:02 Total Protein 7.2 g/dL (6.6-8.7) 06/25/24 17:02 Albumin 4.3 g/dL (3.5-5.2) 06/25/24 17:02 Globulin 2.9 g/dL (1.3-4.6) 06/25/24 17:02 Lipase 15 U/L (13-60) 06/25/24 17:02 Urine Color Yellow (Yellow) 06/25/24 17: Urine Appearance Clear (CLEAR) 06/25/24 17:33 Urine pH 6.0 (5-7) 06/25/24 17:33 Ur Specific [place] 1.005 (1.005-1.030) 06/25/24 17: Urine Protein Negative (Negative) 06/25/24 17: Urine Glucose (UA) Negative (Normal) 06/25/24 17: Urine Ketones Trace (Negative) 06/25/24 17: Urine Blood Trace (Negative) A 06/25/24 17:33 Urine Nitrate Negative (Negative) 06/25/24 17: Urine Bilirubin Negative (Negative) 06/25/24 17: Urine Urobilinogen 0.2 mg/dL (Negative) 06/25/24 17:33 Ur Leukocyte Esterase Negative (Negative) 06/25/24 17:33 Urine RBC 0-2 /hpf (0-2) 06/25/24 17:33 Urine WBC 0-5 /hpf (0-5) 06/25/24 17:33 Ur Squamous Epith Cells 0-5 /hpf (0-5) 06/25/24 17:33 Amorphous Sediment Not Reportable 06/25/24 17:33 Urine Bacteria Trace /hpf (NONE) 06/25/24 17:33 Hyaline Casts 0-4 /lpf H 06/25/24 17:33 All radiology interpretation(s) finalized by discharge Discharge Plan Discharge Patient Disposition: Home Clinical Impression: Abdominal pain Condition: Stable Prescriptions: New promethazine 25 mg tablet 25 mg PO Q6H PRN (Reason: nausea and vomiting) Qty: 20 0RF No Action (DME) Right Ankle Lace Up Brace See Rx Instructions .Route .MEDSUPPLY Qty: 1 0RF Rx Instructions: As directed (DME) Custom made right AFO brace See Rx Instructions .Route .MEDSUPPLY Qty: 1 0RF Rx Instructions: As directed (DME) right ortho boot See Rx Instructions .Route .MEDSUPPLY Qty: 1 0RF Rx Instructions: As directed hydrocodone-acetaminophen 5-325 mg tablet 1 tab PO Q8H 7 Days Qty: 21 0RF atorvastatin 40 mg tablet 40 mg PO QPM buspirone 5 mg tablet 5 mg PO BID alprazolam 1 mg tablet 1 mg PO BID potassium chloride 10 mEq Tablet Extended Release 10 meq PO DAILY aspirin 81 mg Tablet,Delayed Release (Dr/Ec) 81 mg PO DAILY ondansetron 8 mg tablet,disintegrating 8 mg PO BID warfarin 2 mg tablet 4 mg PO DAILY Rx Instructions: WITH 1MG TABLET TO EQUAL 5MG DAILY warfarin 1 mg Tablet 1 mg PO DAILY Rx Instructions: WITH TWO 2 MG TABLETS TO EQUAL 5 MG DAILY metoprolol tartrate 25 mg tablet 25 mg PO BID Discharge Orders: Discharge ED (Routine); Ordered 06/25/24 Ordered By: Nathan Foote Referrals: Ricardo Laughlin, DO [Primary Care Provider, Family Practice] Discharge Diet: Clear Liquid Discharge Activity: Increase activity as tolerated Patient Instructions: Abdominal Pain (ED), Opioid Safety, Pain Management Activity Restrictions/Additional Instructions: Thank you for choosing [facility] for your healthcare needs today. It is very important that you follow up as instructed or that you return to the Emergency Department should you have concerns or if your condition changes or worsens in any way. You are seen in the emergency room with a complaint of abdominal pain. White count was normal the CT of your abdomen did not show any acute pathologic findings there is no sign of acute appendicitis diverticulitis no kidney stones or other acute problems. Recommend clear liquid diet and advance as tolerated. Follow-up with your primary care doctor if you have further problems. Print Language: Lithuanian Coding Level of Care Code ED Customer Specialist for Karen Arvizu
[2024-06-25 17:25] LABS: Alanine Aminotransferase 13 U/L (0-33); Albumin Level 4.3 g/dL (3.5-5.2); Alkaline Phosphatase 91 U/L (35-105); Anion Gap 14.6 (5-19); Aspartate Amino Transferase 18 U/L (0-32); Blood Urea Nitrogen 10 mg/dL (6-20); Calcium 9.5 mg/dL (8.5-10.5); Carbon Dioxide 23 mmol/L (22-29); Chloride 103 mmol/L (98-107); Creatinine Clr Calc Pharmacy 83.4211; Globulin 2.9 g/dL (1.3-4.6); Glomerular Filtration Rate 65.5 mL/min (90-130); Glucose 99 mg/dL (65-115); Lipase 15 U/L (13-60); Osmolality Calculated 283 mOsm/kg (285-295); Potassium 3.6 mmol/L (3.5-5.1); Sodium 137 mmol/L (136-145); Total Bilirubin 0.7 mg/dL (0.15-1.2); Total Protein 7.2 g/dL (6.6-8.7)
[2024-06-25 17:42] VITALS: BP 111/63; PULSE 63; O2SAT 97
[2024-06-25] MEDS: iohexol 350 mg/mL 500 mL Btl (per mL) IV (17:47)
[2024-06-25 18:04] LABS: Bilirubin Urine Negative (Negative); Blood Urine Trace (Negative); Glucose Urine UA Negative (Normal); Ketones Urine Trace (Negative); Leukocyte Esterase Urine Negative (Negative); Nitrate Urine Negative (Negative); Protein Urine Negative (Negative); Specific Gravity, Urine 1.005 (1.005-1.030); Urine Appearance Clear (CLEAR); Urine Color Yellow (Yellow); Urobilinogen Urine 0.2 mg/dL (Negative)
[2024-06-25 18:09] LABS: Add Urine Microscopic? YES; Bacteria Urine Trace /hpf; Hyaline Casts Urine 0-4 /lpf; RBC Urine 0-2 /hpf (0-2); Squamous Epithelial Cell Urine 0-5 /hpf (0-5); WBC Urine 0-5 /hpf (0-5)
[2024-06-25 19:03] VITALS: BP 125/77; PULSE 53; RESP 24; O2SAT 98
[2024-06-25] MEDS: ketorolac 30 mg/mL INJ IVP (19:20)
[2024-06-25 19:27] VITALS: BP 127/77; PULSE 53; RESP 16; O2SAT 98
== END 2024-06-25 19:58 | disposition home or self-care (01) ==
PROVIDERS: Emergency Provider Family Medicine; PCP Electrodiagnostic Medicine
DX: R10.9 Unspecified abdominal pain (principal); Z79.82 Long term (current) use of aspirin; Z79.01 Long term (current) use of anticoagulants; Z87.891 Personal history of nicotine dependence; E78.5 Hyperlipidemia, unspecified; I10 Essential (primary) hypertension; I25.10 Atherosclerotic heart disease of native coronary artery without angina pectoris
CPT/HCPCS: 36415; 74177; 80053; 81001; 83690; 85025; 93005; 96374; 99285; J1885

== ENCOUNTER 2024-11-13 16:07 | Emergency (ER) | payer OTHER, MEDICAID, SELFPAY ==
[2024-11-13 16:12] VITALS: BP 135/68; PULSE 59; TEMP 36.7; O2SAT 98; BMI 45.3
--- NOTE | 2024-11-13 16:56 | CTR_ITS ---
PROCEDURE INFORMATION: Exam: CT Abdomen And Pelvis With Contrast Exam date and time: 11/13/2024 5:54 PM Age: 54 years old Clinical indication: Abdominal pain; Localized; Left lower quadrant (llq); Prior surgery; Surgery date: 6+ months; Surgery type: Colon with ileostomy and reversal; Additional info: Llq pain, hematochezia, history of diverticulitis TECHNIQUE: Imaging protocol: Computed tomography of the abdomen and pelvis with contrast. Radiation optimization: All CT scans at this facility use at least one of these dose optimization techniques: automated exposure control; mA and/or kV adjustment per patient size (includes targeted exams where dose is matched to clinical indication); or iterative reconstruction. Contrast material: OMNIPAQUE 350; Contrast volume: 100 ml; Contrast route: INTRAVENOUS (IV); COMPARISON: CT abdomen pelvis w con* [id number] 06/25/2024 5:42 PM RADIATION DOSE METRICS: Total DLP (mGy-cm): 1035.23 FINDINGS: Liver: Normal. No mass. Gallbladder and biliary ducts: Normal. No calcified stones. No ductal dilation. Pancreas: Normal. No ductal dilation. Spleen: Normal. No splenomegaly. Adrenal glands: Normal. No mass. Kidneys and ureters: Nonspecific although commonly benign renal cysts. Stomach and bowel: Query mild diverticulitis versus focal colitis of tiny focal portion of descending colon on axial image 35. Appendix: No evidence of appendicitis. Intraperitoneal space: Unremarkable. No free air. No significant fluid collection. Vasculature: Aortic atherosclerosis. Lymph nodes: Unremarkable. No enlarged lymph nodes. Urinary bladder: Unremarkable as visualized. Reproductive: Unremarkable as visualized. Bones/joints: Mild degenerative changes of the lumbar vertebrae. No acute fracture. Soft tissues: Unremarkable. Other findings: Gynecologic organs likely surgically absent. CT/CT abdomen pelvis w con* [id number] IMPRESSION: 1. Query mild diverticulitis versus focal colitis of tiny focal portion of descending colon on axial image 35. 2. Aortic atherosclerosis. COMMENTS: Consistent with the [employer]'s Incidental Findings Committee white paper (J Am Raymon Radiol 2018): Any incidental renal lesion less than 1 cm or classified as too small to characterize, or any incidental cystic renal lesion characterized as simple-appearing, is likely benign. No follow-up imaging is recommended for these lesions per consensus recommendations based on imaging criteria.
[2024-11-13 17:22] LABS: Hematocrit 34.6 % (36-47); Hemoglobin 11.00 g/dL (11.27-16.99); Mean Corpuscular HGB Conc 31.8 g/dL (30-55); Mean Corpuscular Hemoglobin 28.7 pg (27-33); Mean Corpuscular Volume 90.3 fl (85-98); Nucleated Red Blood Cells % 0 %; Platelet Count 186 10^3/cmm (157-399); Red Blood Count 3.83 10^6/uL (3.85-5.65); White Blood Count 6.20 10^3/uL (3.29-11.43)
--- NOTE | 2024-11-13 17:24 | W.ED.GIBLEED ---
HPI - GI Bleed General: Chief complaint: GI Bleed Stated complaint: Passing Blood N/V ABD Pain Time Seen by Provider: 11/13/24 16:19 Source: patient Mode of arrival: ambulatory Limitations: no limitations History of Present Illness: Patient is a 54-year-old female who presents the emergency department planing of left-sided abdominal pain for the past few days. States that she has a history of similar 4 years ago, which resulted in her being diagnosed with diverticulitis with perforation and resulted in bowel resection with ileostomy. States that she has also been passing bright red blood in her stools, has been nauseous and vomiting. Also reports that she takes blood thinner, has a history of hernia with mesh repair. Nontoxic-appearing at this time, no fevers or chills noted. No urinary symptoms are reported. No bowel incontinence. States that the pain feels like someone is stabbing me from the inside out. Nonradiating. Onset (ago): day(s) Pain Consistency: constant Severity: similar to previous episodes Relieving factors: none Context: other (History of diverticulitis with perforation) Associated symptoms: Reports abdominal pain, nausea and vomiting; Denies chills, fever(s), headache(s) or rash Treatments Prior to Arrival: none Related Data Home Medications ?Medication ?Instructions ?Recorded ?Confirmed alprazolam 1 mg tablet 1 mg PO BID 06/29/23 05/20/24 aspirin 81 mg tablet,delayed 81 mg PO DAILY 06/29/23 05/20/24 release atorvastatin 40 mg tablet 40 mg PO QPM 06/29/23 05/20/24 buspirone 5 mg tablet 5 mg PO BID 06/29/23 05/20/24 metoprolol tartrate 25 mg tablet 25 mg PO BID 06/29/23 05/20/24 ondansetron 8 mg disintegrating 8 mg PO BID 06/29/23 05/20/24 tablet potassium chloride 10 mEq 10 meq PO DAILY 06/29/23 05/20/24 tablet,extended release warfarin 1 mg tablet 1 mg PO DAILY 06/29/23 05/20/24 Held on 01/21/24. Instructions: Resume on 01/23/24. RECHECK INR warfarin 2 mg tablet 4 mg PO DAILY 06/29/23 05/20/24 Held on 01/21/24. Instructions: Resume on 01/23/24. RECHECK INR Previous Rx's ?Medication ?Instructions ?Recorded right ortho boot #1 ea 09/04/23 Right Ankle Lace Up Brace #1 ea 10/17/23 Custom made right AFO brace #1 ea 02/05/24 hydrocodone 5 mg-acetaminophen 325 1 tab PO Q8H pain 7 days #21 tabs 03/18/24 mg tablet promethazine 25 mg tablet 25 mg PO Q6H PRN nausea and 06/25/24 vomiting #20 tabs ciprofloxacin HCl 500 mg tablet 500 mg PO BID 7 days #14 tabs 11/13/24 (Cipro) hydrocodone 7.5 mg-acetaminophen 1 tab PO Q8H PRN pain #10 tabs 11/13/24 325 mg tablet metronidazole 500 mg tablet 500 mg PO BID 7 days #14 tabs 11/13/24 ondansetron 4 mg disintegrating 4 mg PO TID PRN nausea and 11/13/24 tablet vomiting #30 tabs Allergies Allergy/AdvReac Type Severity Reaction Status Date / Time azithromycin (From Zithromax) Allergy ALGY-Anaphy Verified 11/13/24 16:19 laxis Fish Containing Products Allergy Unknown Verified 11/13/24 16:19 Penicillins Allergy ALGY-Anaphy Verified 11/13/24 16:19 laxis Review of Systems General: Reports: 10 or more systems reviewed and unremarkable except in HPI and below Const: Denies: fever(s), chills, change in appetite, change in weight or diaphoresis ENMT: Denies: throat pain or hoarseness Card: Denies: chest pain, palpitations or lightheadedness Resp: Denies: dyspnea, productive cough or wheezing GI: Reports: abdominal pain, nausea, vomiting, diarrhea, change in stool character and hematochezia; Denies: constipation or bloating : Denies: flank pain, difficulty voiding, dysuria, urinary frequency or urinary urgency Musc: Denies: neck pain or back pain Skin/Breast: Denies: rash or new lesions Neuro: Denies: headache(s) or dizziness PFSH ED PFSH: Medical History Coronary artery disease Hyperlipidemia Diverticulitis Hypertension Portal vein thrombosis Surgical History History of colostomy reversal History of colectomy Family History Sister Bladder cancer Social History Smoking and tobacco/nicotine status: former use of tobacco/nicotine Physical Exam Const: COMMON NORMALS: no acute distress, patient oriented x3, no limitations, healthy appearing, alert and well nourished GENERAL APPEARANCE: cooperative NUTRITIONAL APPEARANCE: obese morbidly obese ORIENTATION/CONSCIOUSNESS: Yes awake OTHER: Nontoxic-appearing Neck/C-Spine: COMMON NORMALS: full ROM, supple, no meningeal signs and no JVD Resp: COMMON NORMALS: normal respiratory effort, No retractions, No use of accessory muscles and clear to auscultation bilaterally AUSCULTATION: clear to auscultation bilaterally, no crackles, no rales, no rhonchi and no wheezes Cardio: COMMON NORMALS: no JVD, regular rate, regular rhythm, No gallops present (Cardio), No clicks present (Cardio), No murmurs present (Cardio), No rub (Cardio) and Peripheral pulses 2+ throughout RATE: regular rate RHYTHM: regular rhythm PERIPHERAL PULSES: Peripheral pulses 2+ throughout GI: COMMON NORMALS: Soft to palpation INSPECTION: Yes central obesity AUSCULTATION: Yes normoactive bowel sounds PALPATION: Yes Soft to palpation, Yes Tenderness to palpation present (GI) Details: LLQ and LUQ, No Guarding due to palpation present (GI) and No Rigid due to palpation RECTAL EXAM: deferred : COMMON NORMALS: Yes no CVA tenderness BLADDER/KIDNEY EXAM: Yes no CVA tenderness Back/Pelvis: COMMON NORMALS: no CVA tenderness Extremity: COMMON NORMALS: normal to inspection and full ROM Neuro: COMMON NORMALS: patient oriented x3, moves all extremities, no focal motor deficits and no sensory deficits noted SENSORIUM/ORIENTATION: Yes alert MENINGEAL SIGNS: Yes no meningeal signs Psych: COMMON NORMALS: mental status grossly normal, cooperative and speech normal SPEECH: Yes normal speech Skin: COMMON NORMALS: no rashes or lesions noted GENERAL SKIN EXAM: no rashes or lesions noted Course Vital Signs: Vital signs: Vital Signs Temperature 98.0 F 11/13/24 16:12 Pulse Rate 62 11/13/24 17:34 Respiratory Rate 18 11/13/24 17:28 Blood Pressure 138/64 11/13/24 17:34 Pulse Oximetry 98 11/13/24 17:34 Oxygen Delivery Me thod Room Air 11/13/24 16:12 MDM - GI Bleed Medical Decision Making Patient presenting with left-sided abdominal pain and blood in her stool, with nausea and vomiting. History of diverticulitis with perforation years ago requiring resection and ileostomy placement with reversal. Is on a blood thinner. Her vitals are stable on arrival, she is nontoxic-appearing and there is reproducible tenderness palpation of the left side of the abdomen. CBC is unremarkable, blood count is baseline and no leukocytosis. Metabolic panel and urinalysis negative. Lipase is normal. CT abdomen pelvis showing mild diverticulitis, correlated clinically with physical exam. We will treat with Cipro and Flagyl as she is allergic to penicillins. Zofran will be sent to pharmacy with some pain meds, she is stable for discharge home and encouraged to follow-up with her regular provider. Strict return precautions given. Lab Data 11/13/24 17:16 11/13/24 17:16 Radiology Impressions Abdomen/Pelvis CT 11/13/24 16:56 IMPRESSION: 1. Query mild diverticulitis versus focal colitis of tiny focal portion of descending colon on axial image 35. 2. Aortic atherosclerosis. COMMENTS: Consistent with the [employer]'s Incidental Findings Committee white paper (J Am Raymon Radiol 2018): Any incidental renal lesion less than 1 cm or classified as too small to characterize, or any incidental cystic renal lesion characterized as simple-appearing, is likely benign. No follow-up imaging is recommended for these lesions per consensus recommendations based on imaging criteria. Laboratory Results WBC 6.20 10^3/uL (3.29-11.43) 11/13/24 17:16 RBC 3.83 10^6/uL (3.85-5.65) L 11/13/24 17:16 Hgb 11.00 g/dL (11.27-16.99) L 11/13/24 17:16 Hct 34.6 % (36-47) L 11/13/24 17:16 MCV 90.3 fl (85-98) 11/13/24 17:16 MCH 28.7 pg (27-33) 11/13/24 17:16 MCHC 31.8 g/dL (30-55) 11/13/24 17:16 RDW 13.7 % (12.1-15.1) 11/13/24 17:16 Plt Count 186 10^3/cmm (157-399) 11/13/24 17:16 MPV 10.1 fL (7.4-10.4) 11/13/24 17:16 Neut % (Auto) 56.0 % 11/13/24 17:16 Lymph % (Auto) 29.5 % 11/13/24 17:16 [place] % (Auto) 9.7 % 11/13/24 17:16 Eos % (Auto) 3.4 % 11/13/24 17:16 Baso % (Auto) 0.8 % 11/13/24 17:16 Neut # (Auto) 3.47 10^3/uL (1.8-7.7) 11/13/24 17:16 Lymph # (Auto) 1.8 10^3/uL (0.8-4.8) 11/13/24 17:16 [place] # (Auto) 0.6 10^3/uL (0.2-0.9) 11/13/24 17:16 Eos # (Auto) 0.2 10^3/uL (0.0-0.8) 11/13/24 17:16 Baso # (Auto) 0.1 10^3/uL (0.0-0.1) 11/13/24 17:16 Nucleated RBC % (auto) 0 % 11/13/24 17:16 Nucleated RBCs # 0.0 /100WBC 11/13/24 17:16 Sodium 141 mmol/L (136-145) 11/13/24 17:16 Potassium 4.0 mmol/L (3.5-5.1) 11/13/24 17:16 Chloride 106 mmol/L (98-107) 11/13/24 17:16 Carbon Dioxide 25 mmol/L (22-29) 11/13/24 17:16 Anion Gap 14.0 (5-19) 11/13/24 17:16 BUN 8 mg/dL (6-20) 11/13/24 17:16 Creatinine 0.8 mg/dL (0.5-0.9) 11/13/24 17:16 GFR Calculation 75.0 mL/min (90-130) L 11/13/24 17:16 Glucose 99 mg/dL (65-115) 11/13/24 17:16 Calculated Osmolality 290 mOsm/kg (285-295) 11/13/24 17:16 Calcium 9.2 mg/dL (8.5-10.5) 11/13/24 17:16 Total Bilirubin 0.3 mg/dL (0.15-1.2) 11/13/24 17:16 AST 21 U/L (0-32) 11/13/24 17:16 ALT 25 U/L (0-33) 11/13/24 17:16 Alkaline Phosphatase 89 U/L (35-105) 11/13/24 17:16 Total Protein 6.6 g/dL (6.6-8.7) 11/13/24 17:16 Albumin 3.8 g/dL (3.5-5.2) 11/13/24 17:16 Globulin 2.8 g/dL (1.3-4.6) 11/13/24 17:16 Lipase 23 U/L (13-60) 11/13/24 17:16 Urine Color Yellow (Yellow) 11/13/24 17:28 Urine Appearance Clear (CLEAR) 11/13/24 17:28 Urine pH 7.0 (5-7) 11/13/24 17:28 Ur Specific [place] 1.008 (1.005-1.030) 11/13/24 17:28 Urine Protein Negative (Negative) 11/13/24 17:28 Urine Glucose (UA) Negative (Normal) 11/13/24 17:28 Urine Ketones Negative (Negative) 11/13/24 17: Urine Blood Negative (Negative) 11/13/24 17:28 Urine Nitrate Negative (Negative) 11/13/24 17:28 Urine Bilirubin Negative (Negative) 11/13/24 17: Urine Urobilinogen 1.0 mg/dL (Negative) 11/13/24 17:28 Ur Leukocyte Esterase Negative (Negative) 11/13/24 17:28 Urine RBC 0-2 /hpf (0-2) 11/13/24 17:28 Urine WBC 0-5 /hpf (0-5) 11/13/24 17:28 Ur Squamous Epith Cells 0-5 /hpf (0-5) 11/13/24 17:28 Amorphous Sediment Not Reportable 11/13/24 17:28 Urine Bacteria None seen /hpf (NONE) 11/13/24 17:28 Hyaline Casts 0-4 /lpf H 11/13/24 17:28 All radiology interpretation(s) finalized by discharge Discharge Plan Discharge Patient Disposition: Home Clinical Impression: Acute diverticulitis Condition: Stable Prescriptions: New metronidazole 500 mg tablet 500 mg PO BID 7 Days Qty: 14 0RF ciprofloxacin HCl [Cipro] 500 mg tablet 500 mg PO BID 7 Days Qty: 14 0RF hydrocodone-acetaminophen 7.5-325 mg tablet 1 tab PO Q8H PRN (Reason: pain) Qty: 10 0RF ondansetron 4 mg tablet,disintegrating 4 mg PO TID PRN (Reason: nausea and vomiting) Qty: 30 0RF No Action (DME) Right Ankle Lace Up Brace See Rx Instructions .Route .MEDSUPPLY Qty: 1 0RF Rx Instructions: As directed (DME) Custom made right AFO brace See Rx Instructions .Route .MEDSUPPLY Qty: 1 0RF Rx Instructions: As directed (DME) right ortho boot See Rx Instructions .Route .MEDSUPPLY Qty: 1 0RF Rx Instructions: As directed hydrocodone-acetaminophen 5-325 mg tablet 1 tab PO Q8H 7 Days Qty: 21 0RF atorvastatin 40 mg tablet 40 mg PO QPM buspirone 5 mg tablet 5 mg PO BID alprazolam 1 mg tablet 1 mg PO BID potassium chloride 10 mEq Tablet Extended Release 10 meq PO DAILY aspirin 81 mg Tablet,Delayed Release (Dr/Ec) 81 mg PO DAILY ondansetron 8 mg tablet,disintegrating 8 mg PO BID warfarin 2 mg tablet 4 mg PO DAILY Rx Instructions: WITH 1MG TABLET TO EQUAL 5MG DAILY warfarin 1 mg Tablet 1 mg PO DAILY Rx Instructions: WITH TWO 2 MG TABLETS TO EQUAL 5 MG DAILY metoprolol tartrate 25 mg tablet 25 mg PO BID promethazine 25 mg tablet 25 mg PO Q6H PRN (Reason: nausea and vomiting) Qty: 20 0RF Discharge Orders: Discharge ED (Routine); Ordered 11/13/24 Ordered By: Gregg Griffin Referrals: Ricardo Laughlin DO [Primary Care Provider, Family Practice] Patient Instructions: Patient Portal & [facility]ert Instructions Activity Restrictions/Additional Instructions: Diverticulitis Discharge Instructions Diagnosis: Acute uncomplicated diverticulitis, confirmed by clinical and radiologic criteria. Medications: - Ciprofloxacin 500 mg orally twice daily for 7 days and metronidazole 500 mg orally twice daily for 7 days (adjusted for penicillin allergy). This regimen provides broad-spectrum coverage against gram-negative rods and anaerobes, as recommended for outpatient management in patients with risk factors or comorbidities. - Ondansetron as needed for nausea. - Hydrocodone-acetaminophen as needed for pain control. Use the lowest effective dose and limit duration to minimize opioid-related adverse effects. Dietary Instructions: - Begin with a clear liquid diet (water, broth, gelatin, clear juices) until abdominal pain and gastrointestinal symptoms improve. Gradually advance to a low-residue diet (low in fiber and indigestible material) as tolerated, typically within 2?3 days of symptom improvement. - Avoid high-fiber foods, seeds, nuts, and raw vegetables during the acute phase. Once symptoms resolve, a gradual return to a normal diet is appropriate. Activity: - Rest as needed. Resume normal activities as tolerated once pain and systemic symptoms subside. Monitoring and Follow-up: - Symptoms should improve within 48?72 hours of initiating therapy. If pain, fever, or gastrointestinal symptoms worsen or fail to improve, prompt re-evaluation is indicated, including consideration for repeat imaging to assess for complications. - Schedule outpatient follow-up within 7 days to assess clinical response and resolution of symptoms. - Colonoscopy is recommended 6?8 weeks after resolution of the acute episode to exclude underlying colorectal malignancy, unless a high-quality colonoscopy was performed within the past year and there are no concerning features. Warning Signs: - Seek immediate medical attention for: - Persistent or worsening abdominal pain - High fever (>101.5?F / 38.6?C) - Recurrent vomiting or inability to tolerate oral intake - Signs of peritonitis (rigid abdomen, rebound tenderness) - New onset of rectal bleeding Prevention and Long-term Management: - After recovery, adopt a high-quality diet rich in fruits, vegetables, and whole grains, maintain a healthy body weight, engage in regular physical activity, and avoid smoking and nonsteroidal anti-inflammatory drugs (NSAIDs) except for aspirin prescribed for cardiovascular indications. - Recurrence risk is approximately 15?20% within two years; elective surgery is not routinely indicated and should be individualized based on disease severity and patient preferences. Adverse Effects and Drug Interactions: - Monitor for gastrointestinal upset, tendinitis, neuropathy (ciprofloxacin), and taste disturbance (metronidazole). Pig Lead Melter Helper regarding potential drug interactions, especially with ciprofloxacin (QT prolongation, warfarin interaction). - Advise against alcohol consumption during metronidazole therapy due to risk of disulfiram-like reaction. Allergy Precautions: - Document penicillin allergy and ensure avoidance of beta-lactam antibiotics. Summary: This regimen and management plan are consistent with current [place] guidelines and expert consensus for outpatient treatment of uncomplicated diverticulitis in patients with comorbidities or risk factors, with close monitoring for clinical improvement and complications. Print Language: Sami Coding Level of Care Code ED Telephone Quotation Clerk for Karen Arvizu
[2024-11-13] MEDS: ondansetron 2 mg/ML SDV 2 mL 4 MG IVP (17:26)
[2024-11-13 17:28] VITALS: RESP 18
[2024-11-13] MEDS: morphine 4 mg/mL SDV 1 mL IVP (17:28)
[2024-11-13 17:34] VITALS: BP 138/64; PULSE 62; O2SAT 98
[2024-11-13 17:44] LABS: Alanine Aminotransferase 25 U/L (0-33); Albumin Level 3.8 g/dL (3.5-5.2); Alkaline Phosphatase 89 U/L (35-105); Anion Gap 14.0 (5-19); Aspartate Amino Transferase 21 U/L (0-32); Blood Urea Nitrogen 8 mg/dL (6-20); Calcium 9.2 mg/dL (8.5-10.5); Carbon Dioxide 25 mmol/L (22-29); Chloride 106 mmol/L (98-107); Creatinine Clr Calc Pharmacy 96.3615; Globulin 2.8 g/dL (1.3-4.6); Glucose 99 mg/dL (65-115); Lipase 23 U/L (13-60); Osmolality Calculated 290 mOsm/kg (285-295); Potassium 4.0 mmol/L (3.5-5.1); Sodium 141 mmol/L (136-145); Total Protein 6.6 g/dL (6.6-8.7)
[2024-11-13 17:45] LABS: Glucose Urine UA Negative (Normal); Nitrate Urine Negative (Negative); Specific Gravity, Urine 1.008 (1.005-1.030)
[2024-11-13 17:50] LABS: Add Urine Microscopic? YES
[2024-11-13] MEDS: iohexol 350 mg/mL 500 mL Btl (per mL) IV (17:58)
[2024-11-13 19:03] VITALS: BP 128/84; PULSE 64; O2SAT 97
== END 2024-11-13 19:04 | disposition home or self-care (01) ==
PROVIDERS: Emergency Provider Physician Assistant; PCP Electrodiagnostic Medicine
DX: K57.32 Diverticulitis of large intestine without perforation or abscess without bleeding (principal); Z79.82 Long term (current) use of aspirin; Z79.01 Long term (current) use of anticoagulants; Z87.891 Personal history of nicotine dependence; E78.5 Hyperlipidemia, unspecified; I25.10 Atherosclerotic heart disease of native coronary artery without angina pectoris; I10 Essential (primary) hypertension
CPT/HCPCS: 36415; 74177; 80053; 81001; 83690; 85025; 96374; 96375; 99285; J2270; J2405; J7030

== ENCOUNTER → 2024-11-20 11:21 | Outpatient (BNVA) | payer OTHER, MEDICAID, SELFPAY | PROVIDERS: PCP Electrodiagnostic Medicine; Visit Provider Podiatrist Foot & Ankle Surgery | DX: M76.71 Peroneal tendinitis, right leg (principal); M25.371 Other instability, right ankle | CPT/HCPCS: 99213 ==